=== PATIENT | male | born 1940 | race Hispanic/Latino ===

== ENCOUNTER → 2020-06-13 | Day surgery (SDC) | payer MEDICARE, OTHER ==
[2020-06-09 16:04] LABS: BASOPHILS % 0.4 % (0.0-1.0); EOSINOPHILS # (AUTO) 0.1 (0.0-0.4); EOSINOPHILS % 1.1 % (0.0-6.0); HEMATOCRIT 40.1 % (38.2-49.6); HEMOGLOBIN 12.8 g/dL (14.0-18.0); LYMPHOCYTES # (AUTO) 2.2 (1.0-3.2); LYMPHOCYTES % 39.6 % (18.0-39.1); MEAN CORPUSCULAR HGB CONC 31.9 g/dL (31-35); MEAN CORPUSCULAR VOLUME 97.1 fL (81-99); MONOCYTES # (AUTO) 0.4 (0.2-0.8); MONOCYTES % 7.6 % (4.4-11.3); NEUTROPHILS # (AUTO) 2.8 (2.1-6.9); NEUTROPHILS % 50.9 % (38.7-80.0); PLATELET COUNT 160 x10e3/uL (140-360); RED BLOOD COUNT 4.13 x10e6/uL (4.3-5.7); RED CELL DISTRIBUTION WIDTH 13.4 % (11.7-14.4)
--- NOTE | 2020-06-09 16:36 | Diagnostic Imaging Report ---
EXAMINATION: CHEST 2 VIEWS INDICATION: Pre-operative COMPARISON: None FINDINGS: LINES/TUBES:None LUNGS:The lungs are well-inflated. No focal consolidation or pulmonary edema. 5 mm right apical pulmonary nodule PLEURA:No pleural effusion or pneumothorax. MEDIASTINUM:The cardiomediastinal silhouette appears normal in size and shape. Atherosclerotic calcifications of the thoracic aorta. BONES/SOFT TISSUES:No acute osseous injury. ABDOMEN:No free air under the diaphragm. IMPRESSION: No focal pneumonia or pulmonary edema. 5 mm right apical pulmonary nodule. If the patient is high risk, consider chest CT on a nonurgent basis for further evaluation. Signed by: Luna Saul MD on 06/09/2020 4:33 PM
--- NOTE | 2020-06-09 16:40 | Diagnostic Imaging Report ---
Exam: KUB - 2 views Indication: Preoperative Comparison: None Findings: Bilateral renal calculi measure up to 9 mm at the right upper pole, 4 mm at the left upper pole, and 5 mm at the left lower pole. A 7 mm calcific density overlying the approximate distribution of the right mid ureter may represent a ureteral calculus. Phleboliths in the left pelvis. Nonobstructive bowel gas pattern. No free air. No acute osseous injury. Impression: Bilateral renal calculi measure up to 9 mm on the right and 5 mm on the left. 7 mm calcific density in the right lower abdomen may represent a right ureteral calculus. Signed by: Luna Saul MD on 06/09/2020 4:36 PM
[~2020-06-13] MED LIST: AMLODIPINE BESYL5 MG PO; ASPIR 8181 MG PO; CEFTRIAXONE SOD 1 GM/NS 50 ML 50 ML IV ONE; DEXAMETHASONE SOD PHOS INJ 4 MG/ML VIAL ONE; ETOMIDATE 2 MG/ML 10 ML INJ IV ONE; IOPAMIDOL 300MG/ML 50ML INFUS..BTL IV ONE; LIDOCAINE HCL 2% JELLY 5 ML TUBE ONE; LIDOCAINE HCL 2% LOCAL INJ 5 ML SDV VIAL INJ ONE; MULTIVITAMINS1 EAC7 PO; ONDANSETRON HCL INJ 2MG/ML 2ML 2 MG/ML VIAL ONE; PROPOFOL IV EMULSION 10 MG/ML 20 ML VIAL ONE; RAMIPRIL5 MG PO; SEVOFLURANE INHAL SOLN 250 ML PEN BTL ONE
--- NOTE | 2020-06-13 07:10 | NUR ---
SPIRITUAL CARE - Pre-Surgery Assessment: Pt in bed. Pt's at bedside. Pt reported supportive attention from family and friends. Intervention: Supervisor Accounts Receivable provided pastoral presence, hospitality, and sympathetic listening. Acquainted pt with availability of locker room clerk while hospitalized. Outcome: Pt expressed appreciation for visit. No need for follow up indicated at this time. LILI Estradalain Spiritual Care Department O: [phone]
[2020-06-13 09:59] VITALS: BP 170/78
--- NOTE | 2020-06-13 11:05 | Operative Report ---
DATE OF PROCEDURE: 06/13/2020 SURGEON: Edgar Colmenares MD PREOPERATIVE DIAGNOSES: Bilateral renal calculi, right ureteral calculi, hematuria. POSTOPERATIVE DIAGNOSES: Bilateral renal calculi, right ureteral calculi, hematuria. PROCEDURES: 1. Cystourethroscopy with right ureteral catheterization and right retrograde pyelogram (separate procedure for microscopic hematuria). 2. Staged right-sided shock wave lithotripsy (entirely separate procedure, right ureteral calculi). 3. Supervision of fluoroscopy. 4. Interpretation of retrograde pyelography. ANESTHESIA: General. ESTIMATED BLOOD LOSS: Minimal. COMPLICATIONS: None. INDICATIONS: Mr. Jimenez is a 79-year-old male with a history of bilateral calculi. He and I had a long discussion about alternatives, risks, and benefits, including nothing, shock-wave lithotripsy, ureteroscopy, percutaneous surgery, or open surgery, and a stent. The patient voiced understanding of the options, alternatives, risks, and benefits. He declined stent placement. He voiced understanding options, elected to proceed with a minimally invasive approach and should this fail, a more aggressive approach. He elects to proceed. PROCEDURE IN DETAIL: After informed consent was obtained, the patient was taken to the operative suite, placed supine on the operative table, underwent general anesthesia by the Anesthesia Service, and was placed in dorsal lithotomy position, and sterilely prepped and draped for cystoscopy. A 21-Danish cystoscope was inserted per urethra. Normal urethra was noted. Panendoscopy of the bladder revealed no tumors, no stones. Right retrograde pyelogram was performed, revealed a very large approximately 8 x 7 mm mid ureteral calculus with proximal hydronephrosis, shock wave lithotripsy head was brought into view. A total of 3000 shocks on maximum power setting of 7 were delivered to the stone. The patient tolerated the procedure well and was transferred to the recovery room in excellent condition. Supervision of fluoroscopy and interpretation ventriculography: I was present for the entire procedure and supervised the use of fluoroscopy. There was no radiologist present. Attention was turned towards the right ureteral orifice, which was catheterized with 5-Danish open-ended catheter. Retrograde pyelogram was performed revealing a delicate distal ureter, a very large 7 x 8 mm mid ureteral calculus with proximal hydronephrosis. Edward Schatte, MD ES/MODL /[id number] cc: Brock Black MD
== END | disposition home or self-care (01) ==
LOC: OR 06:01
PROVIDERS: ATTEND Urology
DX: N13.2 Hydronephrosis with renal and ureteral calculous obstruction (principal); I12.9 Hypertensive chronic kidney disease with stage 1 through stage 4 chronic kidney disease, or unspecified chronic kidney disease; N28.1 Cyst of kidney, acquired; N40.1 Benign prostatic hyperplasia with lower urinary tract symptoms; N13.8 Other obstructive and reflux uropathy; N18.3 Chronic kidney disease, stage 3 (moderate); N52.9 Male erectile dysfunction, unspecified; F41.9 Anxiety disorder, unspecified; Z01.810 Encounter for preprocedural cardiovascular examination; Z01.812 Encounter for preprocedural laboratory examination; Z01.818 Encounter for other preprocedural examination; Z11.59 Encounter for screening for other viral diseases; Z79.82 Long term (current) use of aspirin
CPT/HCPCS: 36415; 50590; 71046; 74018; 85025; 93005; C1758; J0696; J1100; J2001 ×2; J2405; J2704; Q9967; U0002

== ENCOUNTER 2020-06-22 21:44 | Inpatient (IN) | payer MEDICARE, OTHER ==
[~2020-06-22] VITALS: Ht 167.6 cm; Wt 73.9 kg
[~2020-06-22 21:44] MED LIST changes: -CEFTRIAXONE SOD 1 GM/NS 50 ML 50 ML IV ONE; -DEXAMETHASONE SOD PHOS INJ 4 MG/ML VIAL ONE; -ETOMIDATE 2 MG/ML 10 ML INJ IV ONE; -IOPAMIDOL 300MG/ML 50ML INFUS..BTL IV ONE; -LIDOCAINE HCL 2% JELLY 5 ML TUBE ONE; -LIDOCAINE HCL 2% LOCAL INJ 5 ML SDV VIAL INJ ONE; -ONDANSETRON HCL INJ 2MG/ML 2ML 2 MG/ML VIAL ONE; -PROPOFOL IV EMULSION 10 MG/ML 20 ML VIAL ONE; -SEVOFLURANE INHAL SOLN 250 ML PEN BTL ONE
--- NOTE | 2020-06-22 21:59 | Emergency Department Note ---
History of Present Illnes History of Present Illness Chief Complaint: General Medicine Complaints History of Present Illness This is a 79 year old male arrives to the ED with complaints of a fever, states he had kidney stones and was under the care of Dr. Lua- patient states he had a lithotripsy done about a week ago but is otherwise a poor historian. Patient denies any dysuria, hematuria and denies having any pain. Onset (how long ago): day(s) Radiation: Reports non-radiation Severity: mild Context: Reports recent illness, Reports recent surgery Relieving factors: none Exacerbating factors: none Past Medical/Family History Physician Review I have reviewed the patient's past medical and family history. Any updates have been documented here. Past Medical History Recent Fever: Yes Clinical Suspicion of Infectio: Yes New/Unexplained Change in Ment: Yes Review of Systems Review of Systems Constitutional: Reports no symptoms, Reports as per HPI, Reports fever EENTM: Reports no symptoms Cardiovascular: Reports no symptoms Respiratory: Reports no symptoms Gastrointestinal: Reports no symptoms Genitourinary: Reports no symptoms Musculoskeletal: Reports no symptoms Integumentary: Reports no symptoms Neurological: Reports no symptoms Psychological: Reports no symptoms Endocrine: Reports no symptoms Hematological/Lymphatic: Reports no symptoms Physical Exam Related Data Allergies: Coded Allergies: No Known Allergies (Unverified , 06/09/20) Vital signs reviewed: Yes Physical Exam CONSTITUTIONAL Constitutional: Present well-developed, Present well-nourished HENT HENT: Present normocephalic, Present atraumatic, Present oropharynx clear/moist, Present nose normal HENT L/R: Present left ext ear normal, Present right ext ear normal EYES Eyes: Reports PERRL, Reports conjunctivae normal NECK Neck: Present ROM normal PULMONARY Pulmonary: Present effort normal, Present breath sounds normal CARDIOVASCULAR Cardiovascular: Present regular rhythm, Present heart sounds normal, Present capillary refill normal, Present normal rate GASTROINTESTINAL Abdominal: Present soft, Present nontender, Present bowel sounds normal GENITOURINARY Genitourinary: Present exam deferred SKIN Skin: Present warm, Present dry MUSCULOSKELETAL Musculoskeletal: Present ROM normal NEUROLOGICAL Neurological: Present alert, Present no gross motor or sensory deficits PSYCHOLOGICAL Psychological: Present mood/affect normal, Present judgement normal Results Laboratory Lab results reviewed: Yes Laboratory comments Laboratory Tests Test 06/23/20 01:35 06/22/20 21:50 White Blood Count 12.52 x10e3/uL (4.8-10.8) Red Blood Count 4.05 x10e6/uL (4.3-5.7) Hemoglobin 12.5 g/dL (14.0-18.0) Hematocrit 38.6 % (38.2-49.6) Mean Corpuscular Volume 95.3 fL (81-99) Mean Corpuscular Hemoglobin 30.9 pg (28-32) Mean Corpuscular Hemoglobin Concent 32.4 g/dL (31-35) Red Cell Distribution Width 13.5 % (11.7-14.4) Platelet Count 144 x10e3/uL (140-360) Neutrophils (%) (Auto) 73.3 % (38.7-80.0) Lymphocytes (%) (Auto) 15.3 % (18.0-39.1) Monocytes (%) (Auto) 10.5 % (4.4-11.3) Eosinophils (%) (Auto) 0.2 % (0.0-6.0) Basophils (%) (Auto) 0.2 % (0.0-1.0) Neutrophils # (Auto) 9.2 (2.1-6.9) Lymphocytes # (Auto) 1.9 (1.0-3.2) Monocytes # (Auto) 1.3 (0.2-0.8) Eosinophils # (Auto) 0.0 (0.0-0.4) Basophils # (Auto) 0.0 (0.0-0.1) Absolute Immature Granulocyte (auto 0.06 x10e3/uL (0-0.1) Urine Color Yellow (YELLOW) Urine Clarity Sl cloudy (CLEAR) Urine pH 7 (5 - 7) Urine Specific Cook 1.020 (1.010-1.025) Urine Protein 2+ (NEGATIVE) Urine Glucose (UA) Negative (NEGATIVE) Urine Ketones Negative (NEGATIVE) Urine Blood Moderate (NEGATIVE) Urine Nitrite Negative (NEGATIVE) Urine Bilirubin Negative (NEGATIVE) Urine Urobilinogen 1 mg/dL (0.2 - 1) Urine Leukocyte Esterase Small (NEGATIVE) Urine RBC 6-10 /HPF (0-5) Urine WBC 21-50 /HPF (0-5) Urine Epithelial Cells Few /LPF (NONE) Urine Bacteria Few /HPF (NONE) Sodium Level 136 mmol/L (136-145) Potassium Level 4.2 mmol/L (3.5-5.1) Chloride Level 105 mmol/L (98-107) Carbon Dioxide Level 21 mmol/L (22-29) Anion Gap 14.2 mmol/L (8-16) Blood Urea Nitrogen 21 mg/dL (7-26) Creatinine 1.68 mg/dL (0.72-1.25) Estimat Glomerular Filtration Rate 40 ML/MIN (60-) BUN/Creatinine Ratio 13 (6-25) Glucose Level 139 mg/dL (74-118) Lactic Acid Level 1.2 mmol/L (0.5-2.0) Calcium Level 9.0 mg/dL (8.4-10.2) Total Bilirubin 0.9 mg/dL (0.2-1.2) Aspartate Amino Transf (AST/SGOT) 23 IU/L (5-34) Alanine Aminotransferase (ALT/SGPT) 15 IU/L (0-55) Alkaline Phosphatase 53 IU/L (40-150) Creatine Kinase 693 IU/L (30-200) Creatine Kinase MB 0.60 ng/mL (0-5.0) Troponin I 0.006 ng/mL (0-0.300) Total Protein 7.6 g/dL (6.5-8.1) Albumin 3.5 g/dL (3.5-5.0) Globulin 4.1 g/dL (2.3-3.5) Albumin/Globulin Ratio 0.9 (0.8-2.0) Imaging Imaging results reviewed: Yes Impressions IMPRESSION: 1. 6.5 mm obstructing calculus in the proximal right ureter resulting in moderate to severe right hydroureteronephrosis. 2. Additional bilateral nephrolithiasis. 3. Colonic diverticulosis without diverticulitis. 4. Mildly enlarged prostate. Procedures 12 Lead ECG Interpretation ECG Interpretation : ECG: ECG 1 Prior ECG tracings: reviewed Rhythm: sinus rhythm Rate: normal QRS axis: left ST segments normal: Yes Clinical Impression: normal ECG Critical Care Time Total Critical Care Time (min): 65 Critcal care necessary due to: sepsis Assessment & Plan Medical Decision Making MDM 79-year-old male arrives to the ED with complaints of fever, patient is a poor historian. History reveals patient had stones with a recent lithotripsy. Patient can't hospital admission for comfort. UTI and sepsis. Patient source of infection noted to be his urine Patient met SIRS criteria on arrival Blood cultures, lactic acid and broad-spectrum antibiotics in the form of Rocephin given TIME OF SEPSIS 2300 Assessment & Plan Final Impression: (1) Hydroureter (2) Ureterolithiasis (3) UTI (urinary tract infection) (4) Severe sepsis Depart Disposition: ADMITTED Home Meds Reported Medications Multivitamin (MULTIVITAMINS) 1 Each Capsule, 1 CAP PO DAILY 06/09/20 Aspirin (ASPIR 81) 81 Mg Tablet.dr, 81 MG PO DAILY 06/09/20 Ramipril (RAMIPRIL) 5 Mg Capsule, 2.5 MG PO HS, #30 TAB 06/09/20 Amlodipine Besylate (AMLODIPINE BESYLATE) 5 Mg Tablet, 5 MG PO DAILY, #30 TAB 06/09/20 Medications in the ED Ceftriaxone Sodium 50 ml @ 100 mls/hr ONCE ONCE IV ; Start 06/22/20 at 22:00; Stop 06/22/20 at 22:29; Status ILENE MCKINLEY, Jun 22, 2020 21:58
[2020-06-22] MEDS ORDERED: CEFTRIAXONE SOD 1 GM/NS 50 ML 50 ML IV ONE (22:00)
[2020-06-22] MEDS ORDERED: ACETAMINOPHEN 325 MG TAB PO ONE (22:00)
[2020-06-22 22:05] LABS: BASOPHILS % 0.2 % (0.0-1.0); EOSINOPHILS % 0.2 % (0.0-6.0); HEMATOCRIT 38.6 % (38.2-49.6); HEMOGLOBIN 12.5 g/dL (14.0-18.0); LYMPHOCYTES # (AUTO) 1.9 (1.0-3.2); LYMPHOCYTES % 15.3 % (18.0-39.1); MEAN CORPUSCULAR HEMOGLOBIN 30.9 pg (28-32); MEAN CORPUSCULAR HGB CONC 32.4 g/dL (31-35); MEAN CORPUSCULAR VOLUME 95.3 fL (81-99); MONOCYTES # (AUTO) 1.3 (0.2-0.8); MONOCYTES % 10.5 % (4.4-11.3); NEUTROPHILS # (AUTO) 9.2 (2.1-6.9); NEUTROPHILS % 73.3 % (38.7-80.0); PLATELET COUNT 144 x10e3/uL (140-360); RED BLOOD COUNT 4.05 x10e6/uL (4.3-5.7); RED CELL DISTRIBUTION WIDTH 13.5 % (11.7-14.4)
[2020-06-22 22:21] LABS: CLARITY,URINE SL CLOUDY (CLEAR); COLOR,URINE YELLOW (YELLOW)
[2020-06-22 22:22] LABS: ALBUMIN 3.5 g/dL (3.5-5.0); ALBUMIN/GLOBULIN RATIO 0.9 (0.8-2.0); ANION GAP 14.2 mmol/L (8-16); BILIRUBIN,URINE NEGATIVE (NEGATIVE); CREATININE, SERUM 1.68 mg/dL (0.72-1.25); KETONES,URINE NEGATIVE (NEGATIVE); LEUKOCYTE ESTERASE ,URINE SMALL (NEGATIVE); NITRITE,URINE NEGATIVE (NEGATIVE); POTASSIUM 4.2 mmol/L (3.5-5.1); PROTEIN,URINE DIPSTICK 2+ (NEGATIVE); URINE UROBILINOGEN 1 mg/dL (0.2 - 1); WBC,URINE (MAN) 21-50 /HPF (0-5)
[2020-06-22 22:23] LABS: BACTERIA,URINE FEW /HPF; EPITHELIAL CELLS,URINE FEW /LPF
[2020-06-22 22:28] LABS: CREATINE KINASE MB 0.6 ng/mL (0-5.0)
[2020-06-22] MEDS ORDERED: SODIUM CHLORIDE 0.9% 1000ML 1,000 ML IV STA (22:35)
[2020-06-22] MEDS ORDERED: SODIUM CHLORIDE 0.9% 50ML 50 ML ONE (23:12)
[2020-06-22] MEDS ORDERED: IOPAMIDOL 370 MG/ML 200 ML INFUS..BTL INJ ONE (23:12)
--- NOTE | 2020-06-22 23:56 | Diagnostic Imaging Report ---
EXAM: CT Abdomen and Pelvis WITH contrast INDICATION: Abdominal pain. Fever. Kidney stones. COMPARISON: None. TECHNIQUE: Abdomen and pelvis were scanned utilizing a multidetector helical scanner from the lung base to the pubic symphysis after administration of IV contrast. Coronal and sagittal reformations were obtained. Routine protocol was performed. Scan was performed when during portal venous phase. IV CONTRAST: 100 cc [id number] ORAL CONTRAST: Water RADIATION DOSE: Total DLP: 340.01 mGy*cm Estimated effective dose: (DLP x 0.015 x size factor) mSv COMPLICATIONS: None FINDINGS: LINES and TUBES: None. LOWER THORAX: Unremarkable HEPATOBILIARY: No focal hepatic lesions. No biliary ductal dilation. GALLBLADDER: No radio-opaque stones or sludge. No wall thickening. SPLEEN: No splenomegaly. PANCREAS: No focal masses or ductal dilatation. ADRENALS: No adrenal nodules KIDNEYS/URETERS: There is a 6.5 mm obstructing calculus in the proximal right ureter resulting in moderate to severe right hydroureteronephrosis. In addition, there is a 7 mm calculus in the upper pole of the right kidney on image 18. Punctate calculus in the posterior interpolar region of the right kidney on image 21. 2 mm calculus in the posterior lower pole of the right kidney on image 32. There is mild right renal edema and perinephric stranding. There is a 5 mm nonobstructing calculus in the lower pole of the left kidney on image 25. 3 mm nonobstructing calculus in the interpolar region of the left kidney on image 16. Variously-sized low-attenuation lesions scattered throughout the left kidney consistent with simple cysts, the largest exophytic of the posterolateral interpolar region measuring 5.5 cm in length on sagittal image 95. Mild left caliectasis. GI TRACT: No abnormal distention, wall thickening, or evidence of bowel obstruction. There are diverticula within the colon without evidence of diverticulitis. Appendix is not clearly identified, however, there is no evidence of appendicitis. PELVIC ORGANS/BLADDER: The prostate is mildly enlarged measuring 5.5 x 4.8 cm in sagittal and transverse dimensions. LYMPH NODES: No lymphadenopathy. VESSELS: Unremarkable. PERITONEUM / RETROPERITONEUM: No free air or fluid. BONES: There are degenerative changes in the lumbar spine. SOFT TISSUES: Unremarkable. IMPRESSION: 1. 6.5 mm obstructing calculus in the proximal right ureter resulting in moderate to severe right hydroureteronephrosis. 2. Additional bilateral nephrolithiasis. 3. Colonic diverticulosis without diverticulitis. 4. Mildly enlarged prostate. Signed by: Dr. Elizabeth Gill M.D. on 06/22/2020 11:53 PM
[2020-06-23] VITALS (9 sets, daily range): BP systolic 112–154; BP diastolic 61–92
[2020-06-23] MEDS ORDERED: ONDANSETRON HCL INJ 2MG/ML 2ML 2 MG/ML VIAL IV PRN (01:00)
[2020-06-23] MEDS ORDERED: MORPHINE SULFATE 2 MG/ML SYR 1ML IV PRN (01:00)
[2020-06-23] MEDS ORDERED: CEFTRIAXONE SOD 1 GM/NS 50 ML 50 ML IV SCH (01:00)
--- NOTE | 2020-06-23 02:22 | NUR ---
PATIENT IS A NEW ADMIT THAT ARRIVED VIA STRETCHER. PATIENT IS AWAKE AND TALKING. PATIENT HAS BEEN TRANSFERRED INTO THE BED. BED IS IN LOWEST POSITION AND CALL LIGHT IS WITHIN REACH.
[2020-06-23] MEDS ORDERED: HYDRALAZINE HCL 20 MG/ML VIAL IV PRN (03:30)
[2020-06-23] MEDS: ACETAMINOPHEN 325 MG SUPP PR PRN ×2 (05:48→16:24)
[2020-06-23 06:41] LABS: BASOPHILS % 0.2 % (0.0-1.0); EOSINOPHILS % 0.1 % (0.0-6.0); HEMOGLOBIN 11.8 g/dL (14.0-18.0); LYMPHOCYTES # (AUTO) 1.1 (1.0-3.2); LYMPHOCYTES % 10.1 % (18.0-39.1); MEAN CORPUSCULAR HEMOGLOBIN 30.4 pg (28-32); MEAN CORPUSCULAR HGB CONC 31.9 g/dL (31-35); MEAN CORPUSCULAR VOLUME 95.4 fL (81-99); MONOCYTES # (AUTO) 1.1 (0.2-0.8); MONOCYTES % 9.9 % (4.4-11.3); NEUTROPHILS # (AUTO) 8.7 (2.1-6.9); NEUTROPHILS % 79.2 % (38.7-80.0); PLATELET COUNT 142 x10e3/uL (140-360); RED BLOOD COUNT 3.88 x10e6/uL (4.3-5.7); RED CELL DISTRIBUTION WIDTH 13.6 % (11.7-14.4)
--- NOTE | 2020-06-23 06:46 | NUR ---
patient is resting in bed.
--- NOTE | 2020-06-23 07:00 | NUR ---
RECEIVED BEDSIDE SHIFT REPORT FROM OFF GOING NIGHT NURSE. PATIENT IN STABLE CONDITION, NO S/S OF DISTRESS NOTED. TELEMETRY APPLIED. BED IN LOWEST POSITION, BED LOCKED. CALL LIGHT WITHIN REACH.
[2020-06-23 07:22] LABS: ALBUMIN 3.2 g/dL (3.5-5.0); ALBUMIN/GLOBULIN RATIO 0.9 (0.8-2.0); ANION GAP 13.1 mmol/L (8-16); CALCIUM 8.4 mg/dL (8.4-10.2); CREATININE, SERUM 1.45 mg/dL (0.72-1.25); POTASSIUM 4.1 mmol/L (3.5-5.1)
[2020-06-23 07:42] LABS: PHOSPHORUS 2.4 MG/DL (2.3-4.7)
[2020-06-23 08:02] LABS: THYROID STIMULATING HORMONE 0.274 uIU/mL (0.350-4.940)
[2020-06-23] MEDS: FAMOTIDINE 20 MG/2 ML VIAL IV SCH ×2 (08:42→17:53)
[2020-06-23] MEDS ORDERED: SODIUM CHLORIDE 0.9% 250ML 250 ML ONE (12:33)
[2020-06-23] MEDS: CEFTRIAXONE SOD 1 GM/NS 50 ML 50 ML IV SCH (12:36)
[2020-06-23] MEDS: DEXTROSE 5%/0.45% SOD CHL 1,000 ML IV SCH (14:00)
--- NOTE | 2020-06-23 18:44 | History and Physical ---
CONSULTING PHYSICIAN: Dr. Edgar Colmenares. PRIMARY CARE PHYSICIAN: Dr. Brock Black. CHIEF COMPLAINT: Fever. HISTORY OF PRESENT ILLNESS: The patient is a 79-year-old male, who presented to the emergency department with complaints of fever with a history of kidney stones. He had lithotripsy done about one week ago by Dr. Colmenares. He is a poor historian. PAST MEDICAL HISTORY: Bilateral renal calculi, right ureteral calculi, hematuria, hypertension, herpes simplex type 2 and/or shingles i.e., herpes zoster, as the patient takes acyclovir p.r.n. at home, and chronic venous stasis. PAST SURGICAL HISTORY: Cystourethroscopy with right ureteral catheterization and right retrograde pyelogram. Staged right-sided shockwave lithotripsy. This is all performed by Dr. Edgar Colmenares on 06/13/2020. FAMILY HISTORY: The patient states his father due to prostate cancer. His sister with cancer. His son, age 51, has diabetes mellitus. 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 He lives with his . He denies using any assistive device with walking. He tried smoking as a teenager, however, . He does not smoke now. He admits to drinking a few beers on the weekend. Denies any illicit drug use. ALLERGIES: NO KNOWN ALLERGIES. HOME MEDICATIONS: Multivitamin daily, aspirin 81 mg daily, amlodipine 5 mg daily, ramipril 2.5 mg daily, and acyclovir used p.r.n. for flare ups. REVIEW OF SYSTEMS: CONSTITUTIONAL: The patient states he has had weight loss from 183 pounds down to 162 pounds over the last 6 years. He did have fever on admission. Denies any current chills, but states he did have chills last night, 06/22. HEENT: No complaints of problems with eyes, nose, or throat. He is hard of hearing. RESPIRATORY: No complaints of shortness of breath, cough, or phlegm. GENITOURINARY: No dysuria, pain, or hematuria. The patient states he has a very small penis and a small urethra, thus difficult for him to urinate at times. INTEGUMENTARY: Denies any bruising or wounds or rash. CARDIOVASCULAR: No complaints of chest pain or palpitations. He takes ramipril and Norvasc at home for hypertension. GASTROINTESTINAL: Last bowel movement was this morning. No complaints of nausea, vomiting, diarrhea, or constipation. MUSCULOSKELETAL: He has low back pain when lifting things. Denies joint pain. No neurologic, endocrine, allergic, immunological, hematologic, or lymphatic complaints. PHYSICAL EXAMINATION: VITAL SIGNS: Temperature 99.4, currently 98.8, heart rate 115 this morning, currently 102, blood pressure 112/89, respirations 18, and oxygen saturation 96%. Height 5 feet 6 inches, weight 163 pounds, BMI 26.3. GENERAL: The patient lying supine in bed. No acute distress. LUNGS: Clear to auscultation. Respiratory pattern even and unlabored. No supplemental oxygen. HEENT: EOMI. NECK: Supple. No JVD. CARDIOVASCULAR: Regular rate and rhythm. No murmur. ABDOMEN: Bowel sounds positive. Soft and nontender. EXTREMITIES: With no pitting edema. No clubbing, cyanosis, or marked swelling. He has obvious varicose veins. NEUROLOGICAL: GCS 15. Nonfocal. LABORATORY DATA: WBCs 10.94, which is down from 12.52 when he came in yesterday, hemoglobin 11.8, hematocrit 37, and platelets 142. Sodium 139, potassium 4.1, chloride 107, CO2 23, anion gap 13.1, BUN 18, creatinine 1.45, estimated GFR 47, glucose 105, calcium 8.4, phosphorus 2.4, and magnesium 2.0. Total bilirubin 0.8, AST 21, ALT 15, and alkaline phosphatase 55. Total protein 6.9 and albumin 3.2. Triglycerides 52, cholesterol 133, LDL 78, and HDL 45. TSH 0.274. Urinalysis done 06/22, slightly cloudy, specific gravity 1.020, urine protein 2+, small amount of leukocyte esterase, negative for nitrite, rbc's 6 to 10, wbc's, 21 to 50. Coronavirus collected 06/23, remains pending. IMAGING: Yesterday, a CT of the abdomen and pelvis with contrast was done showing a 6.5 mm obstructing calculus in the proximal right ureter resulting in [id number] right hydroureteronephrosis. Additional bilateral nephrolithiasis. Colonic diverticulosis without diverticulitis. Mildly enlarged prostate. A 12-lead EKG done 06/22, showed sinus tachycardia with a heart rate of 103. ASSESSMENT AND PLAN: 1. Hydroureter due to ureterolithiasis. Stone is 6.5 mm. We will start the patient on IV fluids D5 in half-normal saline at 100 mL an hour. Urology following. Pain control. Rocephin antibiotic. 2. Acute urinary tract infection, POA. Empiric Rocephin for now. Await final urine culture and sensitivity results. 3. Severe sepsis due to urinary tract infection, POA. WBCs 10.9 (12.52). Continue Rocephin. 4. Acute kidney injury. Creatinine 1.45 (1.68). Estimated GFR 47 (40). Ramipril held. Monitor renal labs. 5. Controlled hypertension. Blood pressure 112/89. Home dose of Norvasc resumed. P.r.n. IV hydralazine. Monitor blood pressure. 6. Chronic venous insufficiency. Follow up with Cardiology. Follow up with PCP outpatient for referral for possible radiofrequency ablation after seen by Cardiology. 7. Benign prostatic hypertrophy. History and physical time spent 60 minutes. Billing code [id number]. Dictated by Marcus Vargas NP MD YIN CoteP/MODL /[id number]
--- NOTE | 2020-06-23 19:10 | NUR ---
COMPLETED BEDSIDE SHIFT REPORT AND ROUNDING WITH ONCOMING NIGHT NURSE. PATIENT IN STABLE CONDITION, NO S/S OF DISTRESS NOTED. TELEMETRY APPLIED. IV FLUIDS INFUSING @ 100 ML/HR, SITE ASYMPTOMATIC AND PATENT , TRANSPARENT DRESSING APPLIED C/D/I. BED IN LOWEST POSITION, BED LOCKED, SIDE RAILS X 2, NON-SKID SOCKS . CALL LIGHT WITHIN REACH.
[2020-06-23 20:53] LABS: BILIRUBIN,URINE NEGATIVE (NEGATIVE); CLARITY,URINE SL CLOUDY (CLEAR); COLOR,URINE YELLOW (YELLOW); KETONES,URINE NEGATIVE (NEGATIVE); LEUKOCYTE ESTERASE ,URINE NEGATIVE (NEGATIVE); NITRITE,URINE NEGATIVE (NEGATIVE); PROTEIN,URINE DIPSTICK 2+ (NEGATIVE); URINE UROBILINOGEN 0.2 mg/dL (0.2 - 1)
[2020-06-23 21:05] LABS: BACTERIA,URINE MODERATE /HPF; WBC,URINE (MAN) 0-5 /HPF (0-5)
--- NOTE | 2020-06-23 21:05 | NUR ---
URINE SENT TO THE LAB.
[2020-06-24] VITALS (9 sets, daily range): BP systolic 118–157; BP diastolic 51–70
[2020-06-24] MEDS: ACETAMINOPHEN 325 MG SUPP PR PRN (00:40)
[2020-06-24] MEDS: DEXTROSE 5%/0.45% SOD CHL 1,000 ML IV SCH ×3 (02:33→17:31)
[2020-06-24 06:08] LABS: BASOPHILS % 0.2 % (0.0-1.0); EOSINOPHILS % 0.1 % (0.0-6.0); HEMATOCRIT 37.1 % (38.2-49.6); HEMOGLOBIN 11.8 g/dL (14.0-18.0); LYMPHOCYTES # (AUTO) 1.6 (1.0-3.2); LYMPHOCYTES % 18.2 % (18.0-39.1); MEAN CORPUSCULAR HEMOGLOBIN 30.8 pg (28-32); MEAN CORPUSCULAR HGB CONC 31.8 g/dL (31-35); MEAN CORPUSCULAR VOLUME 96.9 fL (81-99); MONOCYTES # (AUTO) 1.1 (0.2-0.8); MONOCYTES % 12.4 % (4.4-11.3); NEUTROPHILS % 68.5 % (38.7-80.0); PLATELET COUNT 124 x10e3/uL (140-360); RED BLOOD COUNT 3.83 x10e6/uL (4.3-5.7); RED CELL DISTRIBUTION WIDTH 13.9 % (11.7-14.4)
[2020-06-24 06:30] LABS: ALBUMIN/GLOBULIN RATIO 0.8 (0.8-2.0); ANION GAP 11.8 mmol/L (8-16); CALCIUM 8.5 mg/dL (8.4-10.2); CREATININE, SERUM 1.59 mg/dL (0.72-1.25); POTASSIUM 3.8 mmol/L (3.5-5.1)
--- NOTE | 2020-06-24 07:00 | NUR ---
BEDSIDE SHIFT REPORT RECEIVED FROM THE HAIR PREPARER RN. EDUCATED PT ABOUT FALL PRECAUTIONS. PT VERBALIZED UNDERSTANDING. CALL LIGHT WITH IN EASY REACH. INSTRUCTED PT TO USE CALL LIGHT FOR ALL THE NEEDS. BED IS LOW AND LOCKED. SIDE RAILS X2. PT DENIES NEEDS AT THIS TIME.
--- NOTE | 2020-06-24 07:17 | NUR ---
Bed side shift report given to oncoming Rn.stable condition.
[2020-06-24] MEDS: AMLODIPINE BESYLATE 5 MG TAB PO SCH (08:29)
[2020-06-24] MEDS: FAMOTIDINE 20 MG/2 ML VIAL IV SCH ×2 (08:29→16:16)
[2020-06-24] MEDS: ASPIRIN 81 MG CHEW TAB PO SCH (08:29)
[2020-06-24] MEDS: MULTIVITAMINS/MINERALS TAB PO SCH (08:29)
--- NOTE | 2020-06-24 09:30 | NUR ---
RECEIVED FAX FROM [facility] @ OFF: [phone] / FAX: [phone] REQUESTING DC ORDERS / SUMMARY TO RESUME HOME HEALTH SERVICES ONCE PT IS DISCHARGED FROM THE HOSPITAL. Addendum: 06/24/20 at 0932 by Marylin South CM THE ABOVE IS ENTERED IN ERROR.
--- NOTE | 2020-06-24 10:21 | Diagnostic Imaging Report ---
Exam: KUB - 2 views Indication: Renal calculus Comparison: CT abdomen and pelvis of 06/22/2020 Findings: 8 mm right upper pole calculus and 5 mm left lower pole calculus corresponds with findings on the CT of 06/22/2020. 7 mm calcific density on the right at the level of L4 corresponds with the right ureteral calculus seen on CT. No additional radiographically apparent urinary calculi. Nonobstructive bowel gas pattern. No free air. No acute osseous injury. Mild degenerative changes of the visualized spine and hip joints. Phleboliths in the pelvis. Impression: Right and left renal calculi and right ureteral calculus as above correspond to findings on recent CT. Signed by: Luna Saul MD on 06/24/2020 10:17 AM
[2020-06-24] MEDS ORDERED: VANCOMYCIN 1GM/NS 250 ML 250 ML IV SCH (11:15)
[2020-06-24] MEDS: CEFTRIAXONE SOD 1 GM/NS 50 ML 50 ML IV SCH (13:25)
--- NOTE | 2020-06-24 17:10 | NUR ---
The patient is a 79-year-old male, who presented to the emergency department with complaints of fever with a history of kidney stones. He had lithotripsy done about one week ago by Dr. Colmenares. He is a poor historian. PAST MEDICAL HISTORY: Bilateral renal calculi, right ureteral calculi, hematuria, hypertension, herpes simplex type 2 and/or shingles i.e., herpes zoster, as the patient takes acyclovir p.r.n. at home, and chronic venous stasis. PAST SURGICAL HISTORY: Cystourethroscopy with right ureteral catheterization and right retrograde pyelogram. Staged right-sided shockwave lithotripsy. This is all performed by Dr. Edgar Colmenares on 06/13/2020. FAMILY HISTORY: The patient states his father due to prostate cancer. His sister with cancer. His son, age 51, has diabetes mellitus. 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 He lives with his . He denies using any assistive device with walking. He tried smoking as a teenager, however, . He does not smoke now. He admits to drinking a few beers on the weekend. Denies any illicit drug use. ALLERGIES: NO KNOWN ALLERGIES. HOME MEDICATIONS: Multivitamin daily, aspirin 81 mg daily, amlodipine 5 mg daily, ramipril 2.5 mg daily, and acyclovir used p.r.n. for flare ups. [id number]
--- NOTE | 2020-06-24 19:00 | NUR ---
BEDSIDE SHIFT REPORT GIVEN TO THE FRUIT OR NUT FARMWORKER RN. PT DENIED FURTHER NEEDS.
--- NOTE | 2020-06-24 19:02 | NUR ---
Received the patient in report.no pain voiced.stable condition.
--- NOTE | 2020-06-24 21:10 | NUR ---
Assessment done.no resp.distress.no pain voiced.aaox3.iv fluid running.tele #[phone] showing sr.phone and call light within reach.instructed to call for assistance as needed.
--- NOTE | 2020-06-24 22:03 | NUR ---
Report given to Kelley.
--- NOTE | 2020-06-24 22:20 | NUR ---
Afebrile.Transferred the patient to room #106 in a stable condition along with belongings via wheel chair.
--- NOTE | 2020-06-24 22:24 | NUR ---
RECEIVED AMAZING REPORT FROM PREVIOUS NURSE. PATIENT CAME TO THE UNIT VIA WHEELCHAIR FROM ROOM 287 ON MED SURG 3. PATIENT IN NO PAIN OR DISTRESS. PATIENT IS A&OX3 AND AMBULATES. BELONGINGS ARE WITH THE PATIENT.
[2020-06-24] MEDS ORDERED: ACETAMINOPHEN 325 MG TAB PO PRN (23:00)
[2020-06-24] MEDS: ENOXAPARIN SOD INJ 40 MG/0.4 ML SYR SC SCH (23:14)
[2020-06-25] VITALS (7 sets, daily range): BP systolic 117–161; BP diastolic 61–81
--- NOTE | 2020-06-25 00:47 | Consultation ---
DATE OF CONSULTATION: HISTORY OF PRESENT ILLNESS: Mr. Jimenez is a 79-year-old [place] male comes in with fever for couple of days. He does have history of kidney stones, bilateral kidney calculi, had a cystoscopy. The patient comes in with fever, chills, and abdominal pain, mainly on the right side. The patient is currently being admitted. The patient does have history of renal stone, UTI before, Herpes Zoster before. His blood cultures are pending. His urine cultures showed Staph aureus and Enterococcus. LABORATORY STUDIES: White count on admission was 12.5 and hemoglobin 12. His COVID-19 was negative. Sodium 1.45. The patient was currently on Rocephin and vancomycin. PHYSICAL EXAMINATION: GENERAL: He is currently alert and oriented. VITAL SIGNS: Stable currently afebrile. . HEENT: Not icteric. NECK: Supple. CHEST: Clear bilateral. HEART: S1 and S2. LUNGS: Soft. IMAGING: CAT scan was noted. IMPRESSION: Urinary tract infection, obstructing calculi, chronic kidney disease, bilateral nephrolithiasis, urinary tract infection with Staphylococcus aureus and Enterococcus. Agree with vancomycin, adjusted for kidney function. We will give Rocephin Enterococcus. Vanc 1 g q.24, Rocephin 1 g q.24. Urology evaluation. We will follow. MD MARY Johnson/CARMITA /[id number]
--- NOTE | 2020-06-25 01:17 | Progress Note ---
DATE: 06/24/2020 Medicine Progress Note SUBJECTIVE: The patient was transferred to my service for underlying insurance reasons. The patient was admitted for underlying hydroureter secondary to nephrolithiasis with a 6.5 mm stone seen on the right ureter. Urology was consulted. The patient was scheduled for a possible cystoscopy soon. PHYSICAL EXAMINATION: VITAL SIGNS: Temperature is 98.7. His T-max is 100.3, pulse 93, respiratory rate is 20, and blood pressure was 100% on room air. GENERAL: In no acute distress. Alert and oriented x3. Cooperative on examination. HEENT: Head is normocephalic and atraumatic. Eyes; pupils are reactive to light bilaterally. Extraocular movements intact bilaterally. Throat, no evidence of any erythema or exudates in the posterior pharynx. Has poor dentition. NECK: Supple. Good range of motion throughout. PULMONARY: Clear to auscultation bilaterally. No wheezing, rales, or rhonchi. No crackles appreciated. CARDIOVASCULAR: Positive S1 and S2. No murmurs, rubs, or gallops. GI: Abdomen is soft, nondistended, and nontender to palpation. Bowel sounds present. MUSCULOSKELETAL: Strength 5/5 throughout. No evidence of any muscle deficits on examination. No weakness appreciated. NEUROLOGIC: Cranial nerves 2 through 12 grossly intact. No evidence of any neurological deficits on exam. SKIN: Intact. Warm to touch. Good cap refill. PSYCHIATRIC: Normal affect and mood. EXTREMITIES: No edema. Good range of motion throughout. LABORATORY FINDINGS: Show white count 8.7, hemoglobin was 11.8, hematocrit 37.1, and platelets of 124. Chemistry; sodium 136, potassium 3.8, chloride 106, bicarb 22, anion gap of 11, BUN 19, creatinine 1.59, and glucose is 116. A1c was 5.3. LFTs within normal range. Albumin was 3, LDL was 78. Urinalysis concerning for underlying UTI. Coronavirus not detected. MICROBIOLOGY: Blood cultures no growth. Urine culture shows Enterococcus and Staphylococcus aureus. IMAGING STUDIES: CT abdomen and pelvis showed 6.5 mm obstructing calculus in the proximal right ureter resulting in gghgcnwa-nn-jlsiug right hydroureteronephrosis. Additional bilateral nephrolithiasis. Chronic diverticulosis without diverticulitis. Mildly enlarged prostate. Abdominal x-ray shows a right left renal calculi with right ureteral calculus as above described on CT findings. IMPRESSION: 1. Fkwgptzx-dd-lzeunp heart right hydroureteronephrosis. 2. Sepsis with leukocytosis with fever secondary to urinary tract infection. 3. Acute kidney injury, on chronic kidney disease, stage 3. 4. Hypotension. 5. BPH. PLAN: At this time. Urology and ID have been consulted. The patient will undergo cystoscopy soon once the coronavirus is negative, which it is now negative. We are going to monitor blood and urine cultures. Continue with broad-spectrum IV antibiotic therapy. Blood cultures no growth to date. Repeat labs in the morning. Put on Lovenox for DVT prophylaxis. Heart healthy diet. PT/OT evaluation. MD MOUSTAPHA Santos/CARMITA /[id number]
[2020-06-25] MEDS: DEXTROSE 5%/0.45% SOD CHL 1,000 ML IV SCH ×2 (04:45→15:48)
[2020-06-25 05:35] LABS: BASOPHILS % 0.3 % (0.0-1.0); EOSINOPHILS # (AUTO) 0.1 (0.0-0.4); EOSINOPHILS % 0.6 % (0.0-6.0); HEMATOCRIT 35.3 % (38.2-49.6); HEMOGLOBIN 11.7 g/dL (14.0-18.0); LYMPHOCYTES # (AUTO) 1.9 (1.0-3.2); LYMPHOCYTES % 24.1 % (18.0-39.1); MEAN CORPUSCULAR HEMOGLOBIN 32.2 pg (28-32); MEAN CORPUSCULAR HGB CONC 33.1 g/dL (31-35); MEAN CORPUSCULAR VOLUME 97.2 fL (81-99); MONOCYTES # (AUTO) 1.1 (0.2-0.8); MONOCYTES % 13.9 % (4.4-11.3); NEUTROPHILS # (AUTO) 4.8 (2.1-6.9); NEUTROPHILS % 60.7 % (38.7-80.0); PLATELET COUNT 135 x10e3/uL (140-360); RED BLOOD COUNT 3.63 x10e6/uL (4.3-5.7); RED CELL DISTRIBUTION WIDTH 13.9 % (11.7-14.4)
[2020-06-25 05:54] LABS: ANION GAP 10.5 mmol/L (8-16); CALCIUM 8.6 mg/dL (8.4-10.2); CREATININE, SERUM 1.65 mg/dL (0.72-1.25); POTASSIUM 3.5 mmol/L (3.5-5.1)
[2020-06-25] MEDS ORDERED: IOPAMIDOL 300MG/ML 50ML INFUS..BTL IV ONE (06:11)
--- NOTE | 2020-06-25 06:30 | NUR ---
PATIENT LEFT FOR SURGERY VIA STRETCHER. PATIENT IN NO PAIN OR DISTRESS. PATIENT USED THE BATHROOM BEFORE LEAVING. PATIENT IS A&OX3 AND AMBULATES. Addendum: 06/25/20 at 0636 by Brionna Corona RN HOURLY ROUNDING PERFORMED
--- NOTE | 2020-06-25 07:00 | NUR ---
PATIENT IN OR AT THIS TIME. RECEIVED REPORT FROM [facility]DERS.
--- NOTE | 2020-06-25 07:14 | NUR ---
GAVE BEDSIDE SHIFT REPORT TO ONCOMING NURSE. HOURLY ROUNDING PERFORMED. PATIENT IN SURGERY
[2020-06-25 08:17] LABS: INR 1.05; PROTHROMBIN TIME 14.2 seconds (11.9-14.5)
[2020-06-25] MEDS ORDERED: FENTANYL CITRATE/PF 100MCG/2 ML INJ ONE (08:31)
[2020-06-25] MEDS ORDERED: MIDAZOLAM HCL 2 MG/2 ML VIAL ONE (08:31)
[2020-06-25] MEDS ORDERED: LIDOCAINE HCL 1% LOCAL INJ 20 ML VIAL ONE (08:40)
[2020-06-25] MEDS ORDERED: IOPAMIDOL 300 MG/ML 15ML VIAL IT ONE (08:40)
[2020-06-25] MEDS ORDERED: SODIUM CHLORIDE 0.9% 250ML 250 ML ONE (08:40)
[2020-06-25] MEDS ORDERED: IOPAMIDOL 370 MG/ML 200 ML INFUS..BTL INJ ONE (08:46)
[2020-06-25] MEDS ORDERED: IOPAMIDOL 300MG/ML 100 ML INFUS..BTL IV ONE (08:47)
--- NOTE | 2020-06-25 09:44 | Diagnostic Imaging Report ---
Right percutaneous nephrostomy catheter placement History: Right-sided hydronephrosis secondary to obstructive ureteral stone. Modality: Ultrasound and fluoroscopy Sedation: Versed 1 mg and fentanyl 50 mcg was given intravenously for conscious sedation. Vital signs were monitored throughout the procedure by a nurse, and remained stable. Physician intra-service time was 30 minutes. Fluoroscopy Time: 1.9 min. Reference Air Kerma (Ka, r): 13.1 mGy. Approach: Right flank, percutaneous Estimated blood loss: < 5 cc. oil well perforator operator: Martin Bailon MD. Activity Therapy Specialist: None. Technique/findings: Informed written consent was obtained. Discussion of risks, benefits, and alternatives were made with the patient. The patient expressed understanding and agreed to proceed. A universal timeout was performed prior to starting the procedure. All elements maximal sterile barrier technique was utilized for this procedure, including utilization of sterile scrub solution for skin prep, a large sterile sheet to cover the areas of the patient that were not prepped, and hand hygiene, mask, head covering, and sterile gown for performing radiologist and scrub technologist. Initial ultrasound images demonstrate severe right-sided hydronephrosis. 2% lidocaine was used for local anesthesia. Using ultrasound guidance, following acquisition of prior images, a 21-gauge Chiba needle was advanced into a right lower calyx. Return of urine and contrast injection confirmed intraluminal placement within the calyx. A 0.018 wire was advanced through the needle and coiled within the right renal pelvis. The needle was exchanged for a 6 Swazi AccuStick sheath. Gentle nephrostogram was performed confirming obstructing mid right ureteral stone. Initial attempt at traversing the stone with a wire was unsuccessful. A prolonged attempt was not made at traversing the stone given concern for acute infection. Subsequently, a 0.035 Amplatz wire was coiled within the right renal pelvis. The tract was dilated and an 8.5 Swazi nephrostomy catheter was advanced over wire with pigtail formed within the right renal pelvis. Contrast injection confirms appropriate positioning. The catheter spaces 0 silk suture. A sterile dressing was applied. The patient told the procedure without immediate complication. Impression: Successful ultrasound and fluoroscopic guided right percutaneous the prostate catheter placement. Can consider attempt at conversion to nephroureterostomy after acute issues resolve if clinically desired. Signed by: Dr. Martin Bailon MD on 06/25/2020 9:41 AM
--- NOTE | 2020-06-25 09:46 | NUR ---
RECEIVED PATIENT FROM RADIOLOGY. PATIENT HAD RIGHT NEPHROSTOMY TUBE PLACED. ORANGE DRAINAGE PRESENT IN BAG. PATIENT DENIES PAIN AT THIS TIME. CALL LIGHT IN REACH WILL CONTINUE TO MONITOR.
[2020-06-25] MEDS: VANCOMYCIN 1GM/NS 250 ML 250 ML IV SCH (11:06)
[2020-06-25] MEDS: FAMOTIDINE 20 MG/2 ML VIAL IV SCH ×2 (11:06→17:07)
[2020-06-25] MEDS: ASPIRIN 81 MG CHEW TAB PO SCH (11:06)
[2020-06-25] MEDS: MULTIVITAMINS/MINERALS TAB PO SCH (11:06)
[2020-06-25] MEDS: AMLODIPINE BESYLATE 5 MG TAB PO SCH (11:06)
[2020-06-25] MEDS: CEFTRIAXONE SOD 1 GM/NS 50 ML 50 ML IV SCH (13:37)
[2020-06-25] MEDS ORDERED: ONDANSETRON HCL INJ 2MG/ML 2ML 2 MG/ML VIAL ONE (14:24)
[2020-06-25] MEDS ORDERED: SEVOFLURANE INHAL SOLN 250 ML PEN BTL ONE (14:24)
[2020-06-25] MEDS ORDERED: PROPOFOL IV EMULSION 10 MG/ML 20 ML VIAL ONE (14:24)
[2020-06-25] MEDS ORDERED: DEXAMETHASONE SOD PHOS INJ 4 MG/ML VIAL ONE (14:24)
[2020-06-25] MEDS ORDERED: LIDOCAINE HCL 2% LOCAL INJ 5 ML SDV VIAL INJ ONE (14:24)
--- NOTE | 2020-06-25 15:08 | Progress Note ---
DATE: 06/25/2020 Medicine Progress Note SUBJECTIVE: The patient underwent cystoscopy today, but his ureteral stent was unsuccessful in which a nephrostomy tube had to be inserted. The patient is seen postprocedurally. He is currently doing well with no complaints. PHYSICAL EXAMINATION: VITAL SIGNS: Temperature is 97.7, pulse 78, respiratory rate is 18, blood pressure 135/67, and pulse ox 100% on room air. GENERAL: Not in acute distress. Alert and oriented x3. Cooperative on examination. HEENT: Head; normocephalic, atraumatic. Eyes; pupils are equal, round, and reactive to light bilaterally. PULMONARY: Clear to auscultation bilaterally. No wheezing, no rales, no rhonchi, no crackles appreciated. CARDIOVASCULAR: Positive S1 and S2. No murmurs, rubs, or gallops appreciated. ABDOMEN: Soft, nondistended, and nontender to palpation. Bowel sounds present. MUSCULOSKELETAL: Strength is 5/5 throughout. No evidence of any muscle deficits on examination. No weakness appreciated. NEUROLOGIC: Cranial nerves 2 through 12 grossly intact. No evidence of any neurological deficits on exam. SKIN: Intact. Warm to touch. Good cap refill. PSYCHIATRIC: Normal affect and mood. EXTREMITIES: No edema. Good range of motion throughout. LABORATORY FINDINGS: Show white count 7.9, hemoglobin 11.7, hematocrit is 35, and platelets of 135. Chemistry; sodium 135, potassium 3.5, chloride 105, bicarb 23, anion gap of 10, BUN is 22, creatinine is 1.65, and glucose is 96. Hemoglobin A1c is 5.3. Calcium is 8.6, phosphorus is 2.4, and magnesium is 2. LFTs within normal range. Albumin was 3. TSH is 0.274. LDL was 78. Urinalysis noted. Urine culture shows Enterococcus and Staphylococcus aureus. Repeat urine culture collected. Blood culture showed no growth to date. IMPRESSION: 1. Esvrqdry-zz-aykqdj right hydroureteronephrosis. 2. Sepsis with leukocytosis with fever secondary to urinary tract infection. 3. Acute kidney injury on chronic kidney disease, stage 3. 4. Hypotension-resolved. 5. Benign prostatic hypertrophy. PLAN: The patient underwent cystoscopy today, was unsuccessful for ureteral stent, underwent nephrostomy to be performed by Interventional Radiology. The patient is doing much better now with no complaints. We will continue with broad-spectrum IV antibiotics. UA with culture has been repeated. ID is following. Blood cultures are no growth to date. Repeat labs in the morning. Lovenox for DVT prophylaxis. MD MOUSTAPHA Santos/MODL /[id number]
[2020-06-25] MEDS: ENOXAPARIN SOD INJ 40 MG/0.4 ML SYR SC SCH (17:07)
--- NOTE | 2020-06-25 18:22 | NUR ---
ABORATORY FINDINGS: Show white count 7.9, hemoglobin 11.7, hematocrit is 35, and platelets of 135. Chemistry; sodium 135, potassium 3.5, chloride 105, bicarb 23, anion gap of 10, BUN is 22, creatinine is 1.65, and glucose is 96. Hemoglobin A1c is 5.3. Calcium is 8.6, phosphorus is 2.4, and magnesium is 2. LFTs within normal range. Albumin was 3. TSH is 0.274. LDL was 78. Urinalysis noted. Urine culture shows Enterococcus and Staphylococcus aureus. Repeat urine culture collected. Blood culture showed no growth to date. [id number]
--- NOTE | 2020-06-25 19:29 | NUR ---
RECEIVED PATIENT IN BED AOX3 PATIENT HAD RIGHT NEPHROSTOMY TUBE WITH LIGHT ORANGE COLORED DRAINAGE . PATIENT DENIES PAIN AT THIS TIME. CALL LIGHT IN REACH WILL CONTINUE TO MONITOR.
[2020-06-26] VITALS (8 sets, daily range): BP systolic 121–141; BP diastolic 61–72
[2020-06-26] MEDS: DEXTROSE 5%/0.45% SOD CHL 1,000 ML IV SCH ×3 (00:45→21:39)
[2020-06-26 05:06] LABS: EOSINOPHILS % 0.2 % (0.0-6.0); HEMATOCRIT 31.4 % (38.2-49.6); HEMOGLOBIN 10.3 g/dL (14.0-18.0); LYMPHOCYTES # (AUTO) 0.8 (1.0-3.2); LYMPHOCYTES % 13.9 % (18.0-39.1); MEAN CORPUSCULAR HEMOGLOBIN 31.6 pg (28-32); MEAN CORPUSCULAR HGB CONC 32.8 g/dL (31-35); MEAN CORPUSCULAR VOLUME 96.3 fL (81-99); MONOCYTES # (AUTO) 0.7 (0.2-0.8); MONOCYTES % 11.5 % (4.4-11.3); NEUTROPHILS # (AUTO) 4.4 (2.1-6.9); NEUTROPHILS % 73.9 % (38.7-80.0); PLATELET COUNT 133 x10e3/uL (140-360); RED BLOOD COUNT 3.26 x10e6/uL (4.3-5.7); RED CELL DISTRIBUTION WIDTH 13.8 % (11.7-14.4)
[2020-06-26 05:28] LABS: ANION GAP 13.1 mmol/L (8-16); CALCIUM 8.2 mg/dL (8.4-10.2); CREATININE, SERUM 1.36 mg/dL (0.72-1.25); POTASSIUM 4.1 mmol/L (3.5-5.1)
--- NOTE | 2020-06-26 06:09 | NUR ---
PT RESTED DURING THE NIGHT ,DENIES PAIN .NEPHROSTOMY TUBE INTACT AND EMPTIED 100C.NO ACUTE DISTRESS NOTED .CALL LIGHT WITH IN REACH .CONTINUE TO MONITOR
--- NOTE | 2020-06-26 06:59 | NUR ---
EMPTIED 350CC/ FLUID FROM THE NEPHROSTOMY TUBE ,BEDSIDE REPORT GIVEN TO THE ONCOMING NURSE
--- NOTE | 2020-06-26 07:00 | NUR ---
RECEIVED PATIENT AWAKE RESTING IN BED NO S/S OF DISTRESS. BED LOW, WHEELS LOCKED, SIDE RAILS X2. CALL LIGHT IN REACH WILL CONTINUE TO MONITOR
[2020-06-26] MEDS: AMLODIPINE BESYLATE 5 MG TAB PO SCH (08:56)
[2020-06-26] MEDS: ASPIRIN 81 MG CHEW TAB PO SCH (08:56)
[2020-06-26] MEDS: FAMOTIDINE 20 MG/2 ML VIAL IV SCH ×2 (08:56→16:04)
[2020-06-26] MEDS: MULTIVITAMINS/MINERALS TAB PO SCH (08:56)
--- NOTE | 2020-06-26 10:29 | Progress Note ---
DATE: SUBJECTIVE: Mr. Jimenez underwent cystoscopy. Ureter stent was unsuccessful. Nephrostomy tube had to be used. Currently doing well. REVIEW OF SYSTEMS: Otherwise negative. PHYSICAL EXAMINATION: GENERAL: He is currently alert and oriented. VITAL SIGNS: Stable, afebrile. HEENT: He is not icteric. NECK: Supple. CHEST: Clear. HEART: S1 and S2. ABDOMEN: Soft. IMPRESSION: Sepsis, pyelonephritis, right hydronephrosis, chronic kidney disease, stage 3. His urine is showing Staph aureus. His white count down to 7.9. Currently on Rocephin and vancomycin. The Staph aureus is still unknown . We will follow. MD MARY Johnson/MODArmando /[id number]
[2020-06-26] MEDS: VANCOMYCIN 1GM/NS 250 ML 250 ML IV SCH (10:53)
[2020-06-26] MEDS: CEFTRIAXONE SOD 1 GM/NS 50 ML 50 ML IV SCH (12:34)
[2020-06-26] MEDS: ENOXAPARIN SOD INJ 40 MG/0.4 ML SYR SC SCH (16:04)
--- NOTE | 2020-06-26 19:30 | NUR ---
RECEIVED PT IN RESTROOM AOX3 NO ACUTE DISTRESS NOTED NEPHROSTOMY TUBE RT BACK DRAINING MARY COLORED URINE .CALL LIGHT WITH IN REACH ,CONTINUE TO MONITOR
[2020-06-26] MEDS ORDERED: ONDANSETRON HCL 4 MG ORAL DISINTEGRATING TAB PO PRN (21:15)
--- NOTE | 2020-06-26 23:32 | Progress Note ---
DATE: HISTORY OF PRESENT ILLNESS: Mr. Jimenez is doing about the same. No new complaint. Underwent cystoscopy. . PHYSICAL EXAMINATION: GENERAL: He is currently alert, oriented. VITAL SIGNS: Stable. Afebrile. HEENT: He is not icteric. NECK: Supple. CHEST: Clear. Heart: S1, S2. ABDOMEN: soft. IMPRESSION: Urinary tract infection with methicillin-resistant Staphylococcus aureus. The patient to be discharged home with Zyvox 600 mg p.o. b.i.d. to finish 14 days. He is stable from Infectious Disease . MD MARY Johnson/CARMITA /[id number]
--- NOTE | 2020-06-26 23:37 | Progress Note ---
DATE: 06/26/2020 Medicine Progress Note SUBJECTIVE: The patient was seen and evaluated approximately around 1:25 this afternoon. I rounded with the nurse. The patient is doing well. He has been cleared by Dr. Colmenares to go home with a nephrostomy tube. His microbiology, urine culture is still pending the preliminary repeat. PHYSICAL EXAMINATION: VITAL SIGNS: Temperature is 98.3, pulse 70, respiratory rate is 18, blood pressure 124/71, pulse ox 99% on room air. GENERAL: Not in acute distress. Alert and oriented x3. Cooperative on examination. HEENT: Head; normocephalic, atraumatic. Eyes; pupils are equal, round, and reactive to light bilaterally. Extraocular movements intact bilaterally. Throat; no evidence of erythema or exudates in the posterior pharynx. Has poor dentition. NECK: Supple. Good range of motion. PULMONARY: Clear to auscultation bilaterally. No wheezing, no rales, no rhonchi, no crackles appreciated. CARDIOVASCULAR: Positive S1 and S2. No murmurs, rubs, or gallops appreciated. ABDOMEN: Soft, nondistended, and nontender to palpation. Bowel sounds present. SKIN: Intact. Warm to touch. Good cap refill. PSYCHIATRIC: Normal affect and mood. EXTREMITIES: No edema. Good range of motion throughout. LABORATORY FINDINGS: Show white count 5.9, hemoglobin 10.3, hematocrit is 31, platelets of 133. Chemistry; sodium 138, potassium 4.1, chloride 109, bicarb 20, anion gap of 13, BUN is 29, creatinine 1.36, glucose is 136. MICROBIOLOGY: Urine cultures repeat preliminary was no growth. Original urine cultures, Enterococcus and Staphylococcus aureus. Blood cultures were no growth to-date. IMAGING STUDIES: Nothing new. IMPRESSION: 1. Qusjcgup-xv-fasqjc right hydroureteronephrosis, status post right-sided nephrostomy tube placed on 06/25/2020. 2. Sepsis with leukocytosis with fever secondary to urinary tract infection. 3. Acute kidney injury on chronic kidney disease, stage 3. 4. Hypotension. 5. Benign prostatic hypertrophy. PLAN: The patient has been evaluated by Urology and he has been cleared for discharge. He will continue with the nephrostomy tube upon discharge. Blood cultures were negative. We are waiting for the repeat urine culture. If they are negative, tomorrow we will discharge on oral antibiotics for two total weeks. I will discuss this with ID as well. Lovenox for DVT prophylaxis. I discussed this plan of care with the patient and the nursing staff. MD MOUSTAPHA Santos/CARMITA /[id number]
[2020-06-27] VITALS: BP 117/58
[2020-06-27 04:00] VITALS: BP 131/71
--- NOTE | 2020-06-27 06:37 | NUR ---
PT RESTING DENIES PAIN , NO ACUTE DISTRESS NOTED CALL LIGHT WITH IN REACH ,CONTINUE TO MONITOR
[2020-06-27] MEDS: DEXTROSE 5%/0.45% SOD CHL 1,000 ML IV SCH (06:43)
--- NOTE | 2020-06-27 07:00 | NUR ---
bedside shift report received pt in stable condition denies pain at this time, updated on poc voiced understanding, ivf infusing to r fa 20g no ss of infiltration noted, no other co vocied call light in reach will continue to monitor
--- NOTE | 2020-06-27 07:19 | NUR ---
BEDSIDE REPORT GIVEN TO THE ONCOMING NURSE
[2020-06-27 08:53] VITALS: BP 137/72
[2020-06-27] MEDS: FAMOTIDINE 20 MG/2 ML VIAL IV SCH (09:15)
[2020-06-27] MEDS: MULTIVITAMINS/MINERALS TAB PO SCH (09:15)
[2020-06-27] MEDS: ASPIRIN 81 MG CHEW TAB PO SCH (09:15)
[2020-06-27] MEDS: AMLODIPINE BESYLATE 5 MG TAB PO SCH (09:20)
[2020-06-27 09:23] VITALS: BP 137/72
[2020-06-27] MEDS: VANCOMYCIN 1GM/NS 250 ML 250 ML IV SCH (10:51)
[2020-06-27 12:27] VITALS: BP 135/62
[2020-06-27] MEDS: CEFTRIAXONE SOD 1 GM/NS 50 ML 50 ML IV SCH (12:30)
--- NOTE | 2020-06-27 16:49 | Discharge Summary ---
FINAL DISCHARGE DIAGNOSES: 1. Erphigso-ca-pgcetw right hydroureteronephrosis secondary to renal stone, status post right-sided nephrostomy tube placed on 06/25/2020. 2. Sepsis with leukocytosis with fever secondary to urinary tract infection. 3. Acute kidney injury on chronic kidney disease, stage 3. 4. Hypotension-resolved. 5. Benign prostatic hypertrophy. CONSULTANTS: Urology and Infectious Disease. PHYSICAL EXAMINATION: VITAL SIGNS: Temperature is 98.2, pulse 65, respiratory rate is 18, blood pressure 135/62, and pulse ox 100% on room air. LABORATORY FINDINGS: Show white count was 5.9, hemoglobin 10.3, hematocrit is 31, and platelets of 133. Coagulation; PT 14 and INR 1.05. Chemistry; sodium 138, potassium 4.1, chloride 109, bicarb 20, anion gap of 13, BUN is 29, creatinine is 1.36, glucose is 136, and calcium is 8.2. Hemoglobin A1c was 5.3. LFTs were normal. Albumin was 3. LDL was 78. Urinalysis consistent with UTI. Serology; coronavirus not detected. MICROBIOLOGY: Blood cultures no growth. Urine culture shows Enterococcus and Staphylococcus MRSA in the urine. In fact, the MRSA staph was less than 10,000 colonies very minimal, but the patient did have Enterococcus. In looking at the sensitivities, the patient was sensitive to Cipro, in which the patient was sent with 14 days of antibiotics. Repeat urine culture finally was found to be negative. IMAGING STUDIES: CT abdomen and pelvis showed a 6.5 mm obstructing calculus in the proximal right ureter resulting in qtlfzdwh-db-sjrpyt right hydroureteronephrosis. Additional bilateral nephrolithiasis noted. Colonic diverticulosis without diverticulitis. Mildly enlarged prostate. Abdominal x-ray shows right and left renal calculi with right ureteral calculus as above corresponds findings on the recent CT. HOSPITAL COURSE: This is a 79-year-old male, comes into the ED with complaints of flank pain on the right side, found to have a hvomchfd-ac-jjlvtq hydroureteronephrosis on CT imaging findings. Urology was consulted including ID. The patient maintained on broad-spectrum IV antibiotic therapy. The patient underwent cystoscopy on 06/25/2020 by Urology, but was unsuccessful for any stent or any stone extraction. Instead, the patient needed to have a nephrostomy tube inserted. The patient went to Interventional Radiology and a right-sided nephrostomy tube was inserted. The patient did much better with no complaints. His pain is better controlled. His blood cultures were negative. Initial urine culture shows Enterococcus faecalis and MRSA Staphylococcus, in which the patient was on IV antibiotic therapy. He was discharged on oral Cipro for 14 total days as per recommendations by the consultants. Repeat urine culture was found to be negative. The patient was doing well back to baseline with no complaints. The patient was cleared for discharge by all consultants. On the day of discharge, vital signs were stable, labs reviewed and stable. The patient is seen and evaluated and examined thoroughly on the day of discharge. No other complaints. The patient verbalized understanding and agrees to plan of care to follow up accordingly as an outpatient with the primary care physician in 1 week and Urology and ID in 2 weeks' time. The patient was educated about how to drain the nephrostomy tube drain by the nursing staff. MEDICATIONS: See medication reconciliation form. DISPOSITION: Home. CONDITION: Stable. DIET: Heart healthy. In the event of any worsening symptoms, the patient was advised to come back to the ED for further evaluation. Discharge summary took greater than 35 minutes. MD MOUSTAPHA Santos/CARMITA /[id number]
--- OUTSIDE RECORDS SUMMARY | 2020-06-27 18:41 | XMS REPORT | Continuity of Care Document ---
Author Author [facility] t Organization [facility] Address [address] [place] [address] [place] [id number] Phone Unavailable Care Team Providers Care Syrup Shed Supervisor Name Role Phone Malinda BRYSON Attphys Unavailable SAMSON JACK Attphymalinda Unavailable Malinda BRYSON Admphys Unavailable Problems This patient has no known problems. Allergies, Adverse Reactions, Alerts This patient has no known allergies or adverse reactions. Medications This patient has no known medications. Procedures This patient has no known procedures. Results Test Description Test Time Test Comments Results Result Comments Source IR CONSULT 2020-06-25 09:36:00 [facility] [address] [place] [id number] Patient Name: ABBI SAVAGE MR #: [id number] : 1940 Age/Sex: 79/M Req #: [id number] [facility] Physician: MARYJANE BRYSON MD Ordered by: SAMSON JACK MD Report #: [id number] Location: MED/SURG Room/Bed: [facility] Procedure: [id number] DX/IR CONSULT Exam Date: Exam Time: REPORT STATUS: Signed Right percutaneous nephrostomy catheter placement History: Right-sided hydronephrosis secondary to obstructive ureteral stone. Modality: Ultrasound and fluoroscopy Sedation: Versed 1 mg and fentanyl 50 mcg was given intravenously for conscious sedation. Vital signs were monitored throughout the procedure by a nurse, and remained stable. Physician intra- service time was 30 minutes. Fluoroscopy Time: 1.9 min. Reference Air Kerma (Ka, r): 13.1 mGy. Approach: Right flank, percutaneous Estimated blood loss: < 5 cc. continuous drier operator: Martin Bailon MD. Polymerization Engineer: None. Technique/findings: Informed written consent was obtained. Discussion of risks, benefits, and alternatives were made with the patient. The patient expressed understanding and agreed to proceed. A universal timeout was performed prior to starting the procedure. All elements maximal sterile barrier technique was utilized for this procedure, including utilization of sterile scrub solution for skin prep, a large sterile sheet to cover the areas of the patient that were not prepped, and hand hygiene, mask, head covering, and sterile gown for performing radiologist and scrub technologist. Initial ultrasound images demonstrate severe right-sided hydronephrosis. 2% lidocaine was used for local anesthesia. Using ultrasound guidance, following acquisition of prior images, a 21-gauge Chiba needle was advanced into a right lower calyx. Return of urine and contrast injection confirmed intraluminal placement within the calyx. A 0.018 wire was advanced through the needle and coiled within the right renal pelvis. The needle was exchanged for a 6 Taiwanese AccuStick sheath. Gentle nephrostogram was performed confirming obstructing mid right ureteral stone. Initial attempt at traversing the stone with a wire was unsuccessful. A prolonged attempt was not made at traversing the stone given concern for acute infection. Subsequently, a 0.035 Amplatz wire was coiled within the right renal pelvis. The tract was dilated and an 8.5 Taiwanese nephrostomy catheter was advanced over wire with pigtail formed within the right renal pelvis. Contrast injection confirms appropriate positioning. The catheter spaces 0 silk suture. A sterile dressing was applied. The patient told the procedure without immediate complication. Impression: Successful ultrasound and fluoroscopic guided right percutaneous the prostate catheter placement. Can consider attempt at conversion to nephrour eterostomy after acute issues resolve if clinically desired. Signed by: Dr. Martin Bailon MD on 06/25/2020 9:41 AM Dictated By: MARTIN BAILON MD 0 Transcribed By: MANSI on 06/25/20940 COPY TO: SAMSON JACK MD NEPHRO/URET W IMG/INJ-NEW ACC 2020-06-25 09:36:00 [place] [address] Patient Name: ABBI SAVAGE MR #: [id number] : 1940 Age/Sex: 79/M Req #: [id number] Adm Physician: MARYJANE BRYSON MD Ordered by: SAMSON JACK MD Report #: [id number] Location: MED/SURG Room/Bed: [facility] Procedure: [id number] IR/NEPHRO/URET W IMG/INJ-NEW ACC Exam Date: Exam Time: REPORT STATUS: Signed Right percutaneous nephrostomy catheter placement History: Right-sided hydronephrosis secondary to obstructive ureteral stone. Modality: Ultrasound and fluoroscopy Sedation: Versed 1 mg and fentanyl 50 mcg was given intravenously for conscious sedation. Vital signs were monitored throughout the procedure by a nurse, and remained stable. Physician intra-service time was 30 minutes. Fluoroscopy Time: 1.9 min. Reference Air Kerma (Ka, r): 13.1 mGy. Approach: Right flank, percutaneous Estimated blood loss: < 5 cc. continuous drier operator: Martin Bailon MD. Polymerization Engineer: None. Technique/findings: Informed written consent was obtained. Discussion of risks, benefits, and alternatives were made with the patient. The patient expressed understanding and agreed to proceed. A universal timeout was performed prior to starting the procedure. All elements maximal sterile barrier technique was utilized for this procedure, including utilization of sterile scrub solution for skin prep, a large sterile sheet to cover the areas of the patient that were not prepped, and hand hygiene, mask, head covering, and sterile gown for performing radiologist and scrub technologist. Initial ultrasound images demonstrate severe right-sided hydronephrosis. 2% lidocaine was used for local anesthesia. Using ultrasound guidance, following acquisition of prior images, a 21-gauge Chiba needle was advanced into a right lower calyx. Return of urine and contrast injection confirmed intraluminal placement within the calyx. A 0.018 wire was advanced through the needle and coiled within the right renal pelvis. The needle was exchanged for a 6 Taiwanese AccuStick sheath. Gentle nephrostogram was performed confirming obstructing mid right ureteral stone. Initial attempt at traversing the stone with a wire was unsuccessful. A prolonged attempt was not made at traversing the stone given concern for acute infection. Subsequently, a 0.035 Amplatz wire was coiled within the right renal pelvis. The tract was dilated and an 8.5 Taiwanese nephrostomy catheter was advanced over wire with pigtail formed within the right renal pelvis. Contrast injection confirms appropriate positioning. The catheter spaces 0 silk suture. A sterile dressing was applied. The patient told the procedure without immediate complication. Impression: Successful ultrasound and fluoroscopic guided right percutaneous the prostate catheter placement. Can consider attempt at conversion to nephroureterostomy after acute issues resolve if clinically desired. Signed by: Dr. Martin Bailon MD on 06/25/2020 9:41 AM Dictated By: MARTIN BAILON MD 0 Transcribed By: MANSI on 06/25/20940 COPY TO: SAMSON JACK MD US GUIDANCE FOR PROCEDURE 2020-06-25 09:36:00 [place] [address] Patient Name: ABBI SAVAGE MR #: [id number] : 1940 Age/Sex: 79/M Req #: [id number] Adm Physician: MARYJANE BRYSON MD Ordered by: SAMSON JACK MD Report #: [id number] Location: MED/SURG Room/Bed: [facility] Procedure: [id number] US/US GUIDANCE FOR PROCEDURE Exam Date: 06/25/20 Exam Time: 832 REPORT STATUS: Signed Right percutaneous nephrostomy catheter placement History: Right-sided hydronephrosis secondary to obstructive ureteral stone. Modality: Ultrasound and fluoroscopy Sedation: Versed 1 mg and fentanyl 50 mcg was given intravenously for conscious sedation. Vital signs were monitored throughout the procedure by a nurse, and remained stable. Physician intra-service time was 30 minutes. Fluoroscopy Time: 1.9 min. Reference Air Kerma (Ka, r): 13.1 mGy. Approach: Right flank, percutaneous Estimated blood loss: < 5 cc. continuous drier operator: Martin Bailon MD. Polymerization Engineer: None. Technique/findi ngs: Informed written consent was obtained. Discussion of risks, benefits, and alternatives were made with the patient. The patient expressed understanding and agreed to proceed. A universal timeout was performed prior to starting the procedure. All elements maximal sterile barrier technique was utilized for this procedure, including utilization of sterile scrub solution for skin prep, a large sterile sheet to cover the areas of the patient that were not prepped, and hand hygiene, mask, head covering, and sterile gown for performing radiologist and scrub technologist. Initial ultrasound images demonstrate severe right-sided hydronephrosis. 2% lidocaine was used for local anesthesia. Using ultrasound guidance, following acquisition of prior images, a 21-gauge Chiba needle was advanced into a right lower calyx. Return of urine and contrast injection confirmed intraluminal placement within the calyx. A 0.018 wire was advanced through the needle and coiled within the right renal pelvis. The needle was exchanged for a 6 Taiwanese AccuStick sheath. Gentle nephrostogram was performed confirming obstructing mid right ureteral stone. Initial attempt at traversing the stone with a wire was unsuccessful. A prolonged attempt was not made at traversing the stone given concern for acute infection. Subsequently, a 0.035 Amplatz wire was coiled within the right renal pelvis. The tract was dilated and an 8.5 Taiwanese nephrostomy catheter was advanced over wire with pigtail formed within the right renal pelvis. Contrast injection confirms appropriate positioning. The catheter spaces 0 silk suture. A sterile dressing was applied. The patient told the procedure without immediate complication. Impression: Successful ultrasound and fluoroscopic guided right percutaneous the prostate catheter placement. Can consider attempt at conversion to nephroureterostomy after acute issues resolve if clinically desired. Signed by: Dr. Martin Bailon MD on 06/25/2020 9:41 AM Dictated By: MARTIN BAILON MD 0 Transcribed By: MANSI on 06/25/20940 COPY TO: SAMSON JACK MD ABDOMEN-1VIEW (KUB) 2020-06-24 10:14:00 [place] [address] Patient Name: ABBI SAVAGE MR #: [id number] : 1940 Age/Sex: 79/M Req #: [id number] Adm Physician: GIOVANNA MCDONALD MD Ordered by: SAMSON JACK MD Report #: [id number] Location: MED/SURG3 Room/Bed: [facility] Procedure: [id number] DX/ABDOMEN-1VIEW (KUB) Exam Date: 06/24/20 Exam Time: 932 REPORT STATUS: Signed Exam: KUB - 2 views Indication: Renal calculus Comparison: CT abdomen and pelvis of 06/22/2020 Findings: 8 mm right upper pole calculus and 5 mm left lower pole calculus corresponds with findings on the CT of 06/22/2020. 7 mm calcific density on the right at the level of L4 corresponds with the right ureteral calculus seen on CT. No additional radiographically apparent urinary calculi. Nonobstructive bowel gas pattern. No free air. No acute osseous injury. Mild degenerative changes of the visualized spine and hip joints. Phleboliths in the pelvis. Impression: Right and left renal calculi and right ureteral calculus as above correspond to findings on recent CT. Signed by: Demarcus Rodriguez MD on 06/24/2020 10:17 AM Dictated By: DEMARCUS RODRIGUEZ MD 1017 Transcribed By: MANSI on 06/24/20 1017 COPY TO: SAMSON JACK MD CT ABDOMEN/PELVIS W 2020-06-22 23:42:00 [place] [address] Patient Name: ABBI SAVAGE MR #: [id number] : 1940 Age/Sex: 79/M Req #: [id number] Adm Physician: Ordered by: ILENE KILLIAN DO Report #: [id number] Location: ER Room/Bed: Procedure: [id number] CT/CT ABDOMEN/PELVIS W Exam Date: 06/22/20 Exam Time: 2315 REPORT STATUS: Signed EXAM: CT Abdomen and Pelvis WITH contrast INDICATION: Abdominal pain. Fever. Kidney stones. COMPARISON: None. TECHNIQUE: Abdomen and pelvis were scanned utilizing a multidetector helical scanner from the lung base to the pubic symphysis after administration of IV contrast. Coronal and sagittal reformations were obtained. Routine protocol was performed. Scan was performed when during portal venous phase. IV CONTRAST: 100 cc Isovue-370 ORAL CONTRAST: Water RADIATION DOSE: Total DLP: 340.01 mGy*cm Estimated effective dose: (DLP x 0.015 x size factor) mSv COMPLICATIONS: None FINDINGS: LINES and TUBES: None. LOWER THORAX: Unremarkable HEPATOBILIARY: No focal hepatic lesions. No biliary ductal dilation. GALLBLADDER: No radio-opaque stones or sludge. No wall thickening. SPLEEN: No splenomegaly. PANCREAS: No focal masses or ductal dilatation. ADRENALS: No adrenal nodules KIDNEYS/URETERS: There is a 6.5 mm obstructing calculus in the proximal right ureter resulting in moderate to severe right hydroureteronephrosis. In addition, there is a 7 mm calculus in the upper pole of the right kidney on image 18. Punctate calculus in the poste rior interpolar region of the right kidney on image 21. 2 mm calculus in the posterior lower pole of the right kidney on image 32. There is mild right renal edema and perinephric stranding. There is a 5 mm nonobstructing calculus in the lower pole of the left kidney on image 25. 3 mm nonobstructing calculus in the interpolar region of the left kidney on image 16. Variously- sized low-attenuation lesions scattered throughout the left kidney consistent with simple cysts, the largest exophytic of the posterolateral interpolar region measuring 5.5 cm in length on sagittal image 95. Mild left caliectasis. GI TRACT: No abnormal distention, wall thickening, or evidence of bowel obstruction. There are diverticula within the colon without evidence of diverticulitis. Appendix is not clearly identified, however, there is no evidence of appendicitis. PELVIC ORGANS/BLADDER: The prostate is mildly enlarged measuring 5.5 x 4.8 cm in sagittal and transverse dimensions. LYMPH NODES: No lymphadenopathy. VESSELS: Unremarkable. PERITONEUM / RETROPERITONEUM: No free air or fluid. BONES: There are degenerative changes in the lumbar spine. SOFT TISSUES: Unremarkable. IMPRESSION: 1. 6.5 mm obstructing calculus in the proximal right ureter resulting in moderate to severe right hydroureteronephrosis. 2. Additional bilateral nephrolithiasis. 3. Colonic diverticulosis without diverticulitis. 4. Mildly enlarged prostate. Signed by: Dr. Elizabeth Bahena M.D. on 06/22/2020 11:53 PM Dictated By: CARLOS BAHENA MD, MD [id number] Transcribed By: MANSI on 06/22/205 COPY TO: ILENE KILLIAN, DO CT CHEST WO 2020-06-19 10:11:00 [address] [place], [place] [address] Patient Name: ABBI SAVAGE MR #: [id number] : 1940 Age/Sex: 79/M Req #: [id number] Adm Physician: Ordered by: SAMSON JACK MD Report #: [id number] Location: CT Room/Bed: Procedure: [id number] CT/CT CHEST WO Exam Date: 06/19/20 Exam Time: 0950 REPORT STATUS: Signed EXAM: CT Chest WITHOUT intravenous contrast 06/19/2020 9:50 AM INDICATION: Pulmonary nodule COMPARISON: Chest radiograph 06/09/2020 TECHNIQUE: Chest was scanned utilizing a multidetector helical scanner from the lung apex through the level of the adrenal glands without a dministration of IV contrast. Coronal and sagittal reformations were obtained. Routine protocol was performed. IV CONTRAST: None RADIATION DOSE: Total DLP: 436 mGy*cm. Dose modulation, iterative reconstruction, and/or weight based adjustment of the mA/kV was utilized to reduce the radiation dose to as low as reasonably achievable. COMPLICATIONS: None FINDINGS: LINES/ TUBES: None. LUNGS AND AIRWAYS: The central airways are patent. No focal consolidation or pulmonary edema. Right apical nodular opacity seen on prior chest radiograph corresponds with a 6 mm calcified granuloma. No additional suspicious pulmonary nodules. PLEURA: The pleural spaces are clear. HEART AND MEDIASTINUM: The thyroid gland is normal. No mediastinal, hilar or axillary lymphadenopathy. The heart is normal in size.. There is no pericardial effusion. Scattered athetotic calcifications of the thoracic aorta and coronary arteries. UPPER ABDOMEN: 7 mm right upper pole renal calculus with moderate right hydronephrosis. Partially visualized 4.3 cm left upper pole exophytic simple renal cyst. 4 mm left upper pole renal calculus. 1cm left hepatic cyst. BONES: No acute osseous injury. No suspicious lytic or blastic lesions. SOFT TISSUES: Unremarkable. IMPRESSION: Nodular opacity seen on prior chest radiograph corresponds with a 6 mm right apical calcified granuloma. No suspicious pulmonary nodules. 7 mm right upper pole renal calculus and moderate right hydronephrosis. 4 mm left upper pole renal calculus. No left hydronephrosis. Partially visualized left upper pole 4.3 cm exophytic simple renal cyst. Signed by: Demarcus Rodriguez MD on 06/19/2020 10:18 AM Dictated By: DEMARCUS RODRIGUEZ MD 1018 Transcribed By: MANSI on 06/19/20 1018 COPY TO: SAMSON JACK MD ABDOMEN-1VIEW (KUB) 2020-06-09 16:34:00 [place] [address] Patient Name: ABBI SAVAGE MR #: [id number] : 1940 Age/Sex: 79/M Req #: [id number] Adm Physician: Ordered by: SAMSON JACK MD Report #: [id number] Location: OR Room/Bed: Procedure: [id number] DX/ABDOMEN-1VIEW (KUB) Exam Date: 06/09/20 Exam Time: 1618 REPORT STATUS: Signed Exam: KUB - 2 views Indication: Preoperative Comparison: None Findings: Bilateral renal calculi measure up to 9 mm at the right upper pole, 4 mm at the left upper pole, and 5 mm at the left lower pole. A 7 mm calcific density overlying the approximate distribution of the right mid ureter may represent a ureteral calculus. Phleboliths in the left pelvis. Nonobstructive bowel gas pattern. No free air. No acute osseous injury. Impression: Bilateral renal calculi measure up to 9 mm on the right and 5 mm on the left. 7 mm calcific density in the right lower abdomen may represent a right ureteral calculus. Signed by: Demarcus Rodriguez MD on 06/09/2020 4:36 PM Dictated By: DEMARCUS RODRIGUEZ MD 35 Transcribed By: MANSI on 06/09/201635 COPY TO: SAMSON JACK MD CHEST 2 VIEWS 2020-06-09 16:30:00 [place] [address] Patient Name: ABBI SAVAGE MR #: [id number] : 1940 Age/Sex: 79/M Req #: [id number] Adm Physician: Ordered by: SAMSON JACK MD Report #: [id number] Location: OR Room/Bed: Procedure: [id number] DX/CHEST 2 VIEWS Exam Date: 06/09/20 Exam Time: 1618 REPORT STATUS: Signed EXAMINATION: CHEST 2 VIEWS INDICATION: Pre-operative COMPARISON: None FINDINGS: LINES/TUBES:None LUNGS:The lungs are well-inflated. No focal consolidation or pulmonary edema. 5 mm right apical pulmonary nodule PLEURA:No pleural effusion or pneumothorax. MEDIASTINUM:The cardiomediastinal silhouette appears normal in size and shape. Atherosclerotic calcifications of the thoracic aorta. BONES/SOFT TISSUES:No acute osseous injury. ABDOMEN:No free air under the diaphragm. IMPRESSION: No focal pneumonia or pulmonary edema. 5 mm right apical pulmonary nodule. If the patient is high risk, consider chest CT on a nonurgent basis for further evaluation. Signed by: Demarcus Rodriguez MD on 06/09/2020 4:33 PM Dictated By: DEMARCUS RODRIGUEZ MD 163 Transcribed By: MANSI on 06/09/201632 COPY TO: SAMSON JACK MD
--- OUTSIDE RECORDS SUMMARY | 2020-06-27 18:42 | XMS REPORT | Continuity of Care Document ---
Author Author [facility] t Organization [facility] Address [address] [place] [address] [place] [address] Phone Unavailable Care Team Providers Care Certified Lactation Counselor Name Role Phone Malinda BRYSON Attphys Unavailable [...] Result Comments Source IR CONSULT 2020-06-25 09:36:00 [facility] [address] [place] [id number] Patient Name: ABBI SAVAGE MR #: [id number] : 1940 Age/Sex: 79/M Req #: [id number] [facility] Physician: MARYJANE BRYSON MD Ordered by: SAMSON JACK MD Report #: [id number] Location: MED/SURG Room/Bed: [facility] [place] Procedure: [id number] DX/IR CONSULT Exam Date: Exam Time: REPORT [...] percutaneous Estimated blood loss: < 5 cc. blue line operator: Martin Bailon MD. Special Education Bus Driver: None. Technique/findings: Informed written consent was obtained. [...] The needle was exchanged for a 6 Welsh AccuStick sheath. Gentle nephrostogram was performed confirming obstructing mid right ureteral stone. Initial attempt at traversing the stone with a wire was unsuccessful. A prolonged attempt was not made at traversing the stone given concern for acute infection. Subsequently, a 0.035 Amplatz wire was coiled within the right renal pelvis. The tract was dilated and an 8.5 Welsh nephrostomy catheter was advanced over wire with [...] MD NEPHRO/URET W IMG/INJ-NEW ACC 2020-06-25 09:36:00 [place] [address] Patient Name: ABBI SAVAGE MR #: [id number] : 1940 Age/Sex: 79/M Req #: [id number] Adm Physician: MARYJANE BRYSON MD Ordered by: SAMSON JACK MD Report #: [id number] Location: MED/SURG Room/Bed: [facility] [place] Procedure: [id number] IR/NEPHRO/URET W IMG/INJ-NEW ACC Exam Date: Exam [...] percutaneous Estimated blood loss: < 5 cc. blue line operator: Martin Bailon MD. Special Education Bus Driver: None. Technique/findings: Informed written consent was obtained. [...] The needle was exchanged for a 6 Welsh AccuStick sheath. Gentle nephrostogram was performed confirming obstructing mid right ureteral stone. Initial attempt at traversing the stone with a wire was unsuccessful. A prolonged attempt was not made at traversing the stone given concern for acute infection. Subsequently, a 0.035 Amplatz wire was coiled within the right renal pelvis. The tract was dilated and an 8.5 Welsh nephrostomy catheter was advanced over wire with [...] MD US GUIDANCE FOR PROCEDURE 2020-06-25 09:36:00 [place] [address] Patient Name: ABBI SAVAGE MR #: [id number] : 1940 Age/Sex: 79/M Req #: [id number] Adm Physician: MARYJANE BRYSON MD Ordered by: SAMSON JACK MD Report #: [id number] Location: MED/SURG Room/Bed: [facility] [place] Procedure: [id number] US/US GUIDANCE FOR PROCEDURE Exam Date: 06/25/20 [...] percutaneous Estimated blood loss: < 5 cc. blue line operator: Martin Bailon MD. Special Education Bus Driver: None. Technique/findi ngs: Informed written consent was [...] The needle was exchanged for a 6 Welsh AccuStick sheath. Gentle nephrostogram was performed confirming obstructing mid right ureteral stone. Initial attempt at traversing the stone with a wire was unsuccessful. A prolonged attempt was not made at traversing the stone given concern for acute infection. Subsequently, a 0.035 Amplatz wire was coiled within the right renal pelvis. The tract was dilated and an 8.5 Welsh nephrostomy catheter was advanced over wire with [...] SAMSON JACK MD ABDOMEN-1VIEW (KUB) 2020-06-24 10:14:00 [place] [address] Patient Name: ABBI SAVAGE MR #: [id number] : 1940 Age/Sex: 79/M Req #: [id number] Adm Physician: GIOVANNA MCDONALD MD Ordered by: SAMSON JACK MD Report #: [id number] Location: MED/SURG3 Room/Bed: [facility] Procedure: [id number] DX/ABDOMEN-1VIEW (KUB) Exam Date: 06/24/20 Exam Time: [...] JACK MD CT ABDOMEN/PELVIS W 2020-06-22 23:42:00 [place] [address] Patient Name: ABBI SAVAGE MR #: [id number] : 1940 Age/Sex: 79/M Req #: [id number] Adm Physician: Ordered by: ILENE KILLIAN DO Report #: [id number] Location: ER Room/Bed: Procedure: [id number] CT/CT ABDOMEN/PELVIS W Exam Date: 06/22/20 Exam [...] PM Dictated By: CARLOS BAHENA MD, MD [id number] Transcribed By: MANSI on 06/22/204 COPY TO: ILENE KILLIAN, DO CT CHEST WO 2020-06-19 10:11:00 [address] [place], [place] [address] Patient Name: ABBI SAVAGE MR #: [id number] : 1940 Age/Sex: 79/M Req #: [id number] Adm Physician: Ordered by: SAMSON JACK MD Report #: [id number] Location: CT Room/Bed: Procedure: [id number] CT/CT CHEST WO Exam Date: 06/19/20 Exam [...] SAMSON JACK MD ABDOMEN-1VIEW (KUB) 2020-06-09 16:34:00 [place] [address] Patient Name: ABBI SAVAGE MR #: [id number] : 1940 Age/Sex: 79/M Req #: [id number] Adm Physician: Ordered by: SAMSON JACK MD Report #: [id number] Location: OR Room/Bed: Procedure: [id number] DX/ABDOMEN-1VIEW (KUB) Exam Date: 06/09/20 Exam Time: [...] JACK MD CHEST 2 VIEWS 2020-06-09 16:30:00 [place] [address] Patient Name: ABBI SAVAGE MR #: [id number] : 1940 Age/Sex: 79/M Req #: [id number] Adm Physician: Ordered by: SAMSON JACK MD Report #: [id number] Location: OR Room/Bed: Procedure: [id number] DX/CHEST 2 VIEWS Exam Date: 06/09/20 Exam [...]
[2020-07-13] MEDS ORDERED: RAMIPRIL2.5 MG PO (15:02)
== END 2020-06-27 15:42 | disposition home or self-care (01) | DRG 872 ==
LOC: ER 21:52 → ERHOLD 06-23 01:34 → MED/SURG3 06-23 02:07 → MED/SURG 06-24 22:56
PROVIDERS: ADMIT Internal Medicine; ATTEND Internal Medicine
PROC: 0T9330Z Drainage of Right Kidney Pelvis with Drainage Device, Percutaneous Approach (ICD-10-PCS; principal; 2020-06-25 06:30)
DX: A41.9 Sepsis, unspecified organism (principal); N13.6 Pyonephrosis; N17.9 Acute kidney failure, unspecified; N12 Tubulo-interstitial nephritis, not specified as acute or chronic; R65.20 Severe sepsis without septic shock; I12.9 Hypertensive chronic kidney disease with stage 1 through stage 4 chronic kidney disease, or unspecified chronic kidney disease; N18.3 Chronic kidney disease, stage 3 (moderate); N40.1 Benign prostatic hyperplasia with lower urinary tract symptoms; R33.8 Other retention of urine; Z11.59 Encounter for screening for other viral diseases; B95.62 Methicillin resistant Staphylococcus aureus infection as the cause of diseases classified elsewhere; B95.2 Enterococcus as the cause of diseases classified elsewhere; I87.2 Venous insufficiency (chronic) (peripheral)
CPT/HCPCS: 36415; 50430; 74018; 74177; 74420; 74470; 76942; 80048; 80053; 80061; 80202; 81001; 82550; 82553; 82948; 83036; 83605; 83735; 84100; 84443; 84484; 85025; 85610; 87040; 87086; 87186; 93005; 99152; 99153; 99284; C1758; C1769; J0360; J0696; J1100; J1650; J2001; J2250; J2405; J3010; J3370; J7030; J7050; Q9967; U0002

== ENCOUNTER → 2020-07-21 | Day surgery (SDC) | payer MEDICARE, OTHER ==
[2020-07-14 13:08] LABS: BASOPHILS % 0.4 % (0.0-1.0); EOSINOPHILS # (AUTO) 0.1 (0.0-0.4); HEMATOCRIT 35.5 % (38.2-49.6); HEMOGLOBIN 11.3 g/dL (14.0-18.0); LYMPHOCYTES # (AUTO) 1.9 (1.0-3.2); LYMPHOCYTES % 35.7 % (18.0-39.1); MEAN CORPUSCULAR HEMOGLOBIN 30.7 pg (28-32); MEAN CORPUSCULAR HGB CONC 31.8 g/dL (31-35); MEAN CORPUSCULAR VOLUME 96.5 fL (81-99); MONOCYTES # (AUTO) 0.4 (0.2-0.8); MONOCYTES % 7.6 % (4.4-11.3); NEUTROPHILS # (AUTO) 2.9 (2.1-6.9); NEUTROPHILS % 55.1 % (38.7-80.0); PLATELET COUNT 177 x10e3/uL (140-360); RED BLOOD COUNT 3.68 x10e6/uL (4.3-5.7); RED CELL DISTRIBUTION WIDTH 13.7 % (11.7-14.4)
--- NOTE | 2020-07-14 14:39 | Diagnostic Imaging Report ---
X-ray chest PA and lateral Comparison: None History: Preop Findings: Central airways are unremarkable. Heart size is borderline normal. Aorta is atherosclerotic and tortuous. There is an opacity with a sharp right border in the superior mediastinum that goes to the neck. The right paratracheal stripe is crisp. The right paraspinal line superiorly is obscured. This could represent a vascular marking such as an ectatic brachiocephalic artery are less likely aberrant origin of the right subclavian artery. A thyroid lesion would be another less likely possibility due to the findings. CT of the chest can resolve this without difficulty. There is possibility of a right apical lung nodule that measures approximately 8 mm x 5 mm. There is no lung infiltrate. No significant skeletal abnormality seen. Upper abdomen is unremarkable. Impression: No acute cardiopulmonary disease. Right superior mediastinal opacity that can be further evaluated with chest CT along with the right apical pulmonary nodule on a non urgent basis. Signed by: Jose Garcia MD on 07/14/2020 2:35 PM
--- NOTE | 2020-07-16 16:00 | NUR ---
PT Elizabeth SAVAGE FOR [facility] WAS RESCHEDULED FROM 07/18/-07/21. PT TESTED NEGATIVE FOR COVID 07/14/2020. PER NEW POLICY MAY USE SAME TEST IF PT ASYMPTOMATIC AND SELF QUARANTINED. SPOKE WITH PT 07/16/2020 AND PT CONFIRMS ASYMPTOMATIC AND HAS BEEN SELF QUARANTINED SINCE 07/14. Addendum: 07/17/20 at 0842 by Alem Clark RN WILLIAM WITH CHARGE NURSE JAVAD 07/17 @6933. SHE IS AWARE THAT PT WAS NOT RETESTED R/T NEW ALGORITHM POLICY.
[~2020-07-21] VITALS: Ht 167.6 cm; Wt 73.0 kg
[~2020-07-21] MED LIST changes: +CEFTRIAXONE SOD 1 GM/NS 50 ML 50 ML IV ONE; +DEXAMETHASONE SOD PHOS INJ 4 MG/ML VIAL ONE; +FENTANYL CITRATE/PF 100MCG/2 ML INJ ONE; +IOPAMIDOL 300MG/ML 50ML INFUS..BTL IV ONE; +LIDOCAINE HCL 2% LOCAL INJ 5 ML SDV VIAL INJ ONE; +ONDANSETRON HCL INJ 2MG/ML 2ML 2 MG/ML VIAL ONE; +PROPOFOL IV EMULSION 10 MG/ML 20 ML VIAL ONE; +RAMIPRIL2.5 MG PO; +SEVOFLURANE INHAL SOLN 250 ML PEN BTL ONE
[2020-07-21 09:28] VITALS: BP 131/85
--- NOTE | 2020-07-23 12:20 | Operative Report ---
DATE OF PROCEDURE: 07/21/2020 SURGEON: Edgar Colmenares MD PREOPERATIVE DIAGNOSES: 1. Right ureteral calculus. 2. Right nephrostomy. 3. Right hydronephrosis. POSTOPERATIVE DIAGNOSES: 1. Right ureteral calculus. 2. Right nephrostomy. 3. Right hydronephrosis. PROCEDURES: 1. Right-sided ureteroscopy with laser lithotripsy and stent placement in a staged fashion. 2. Supervision of fluoroscopy for both ureteroscopic and stent insertion portion. 3. Interpretation of retrograde pyelography. ANESTHESIA: General. ESTIMATED BLOOD LOSS: Minimal. COMPLICATIONS: None. INDICATIONS FOR PROCEDURE: Mr. Jimenez is a very pleasant 79-year-old male with prior lithotripsy, unable to place stent, now presenting for ureteroscopy. He voiced understanding of the options, alternatives, risks, and benefits. He elected to proceed. PROCEDURE IN DETAIL: After informed consent was obtained, the patient was taken to operative suite, placed supine on the operating table, underwent general anesthesia by the Anesthesia Service, was placed in dorsal lithotomy position, and sterilely prepped and draped for cystoscopy. A 21-Indonesian cystoscope was inserted per urethra. Normal urethra was noted. There was trilobar prostatic hypertrophy. Panendoscopy of the bladder revealed no tumors, no stones. Right guidewire was advanced to the level of stone. Second safety wire was introduced. Ureter was dilated. A flexible ureteroscope was advanced to the level of stone. Stone was densely impacted and mucosalized as seen on image #1 and #2 With moderate difficulty, this area was unroofed utilizing 365 micron laser fiber. The stone was fragmented as much as possible in the inside, best seen on image #3. Image #4, the ureteroscope was advanced to the level of renal pelvis and calyx showing calys and the wire. With the inability to pull the stone out of the wall due to being mucosalized, we placed a 6 x 26 ureteral stent with a coil in the renal pelvis and a coil in the bladder. Plan on eswl to hopefully fragment these embedded fragments, so we can return later and basket extract them. Supervision of fluoroscopy and interpretation of retrograde pyelography: I was present for the entire procedure and supervised fluoroscopy. There was no radiologist present. Attention was turned towards right ureter, which was catheterized with ureteroscope. Retrograde pyelogram was performed with ureteroscope revealing densely impacted ureteral calculus on the right side. Ureteral stent in adequate position on right side. MD JUNG Sanchez/CARMITA /[id number] MTDCathleen
== END | disposition home or self-care (01) ==
LOC: OR 06:15
PROVIDERS: ATTEND Urology
DX: N20.1 Calculus of ureter (principal); N13.30 Unspecified hydronephrosis; Z93.6 Other artificial openings of urinary tract status; I12.9 Hypertensive chronic kidney disease with stage 1 through stage 4 chronic kidney disease, or unspecified chronic kidney disease; N18.3 Chronic kidney disease, stage 3 (moderate); N20.0 Calculus of kidney; N28.1 Cyst of kidney, acquired; N40.1 Benign prostatic hyperplasia with lower urinary tract symptoms; R35.1 Nocturia; N52.9 Male erectile dysfunction, unspecified; I83.90 Asymptomatic varicose veins of unspecified lower extremity; Z01.810 Encounter for preprocedural cardiovascular examination; Z01.812 Encounter for preprocedural laboratory examination; Z01.818 Encounter for other preprocedural examination; Z11.59 Encounter for screening for other viral diseases; Z79.82 Long term (current) use of aspirin
CPT/HCPCS: 36415; 52356; 71046; 74420; 85025; 93005; C1758 ×2; C1769; C2617; J0696; J1100; J2001; J2405; J2704; J3010; Q9967; U0002

== ENCOUNTER 2020-07-28 15:47 | Emergency (ER) | payer MEDICARE ==
[~2020-07-28] VITALS: Ht 167.6 cm; Wt 72.6 kg
[~2020-07-28 15:47] MED LIST changes: -CEFTRIAXONE SOD 1 GM/NS 50 ML 50 ML IV ONE; -DEXAMETHASONE SOD PHOS INJ 4 MG/ML VIAL ONE; -FENTANYL CITRATE/PF 100MCG/2 ML INJ ONE; -IOPAMIDOL 300MG/ML 50ML INFUS..BTL IV ONE; -LIDOCAINE HCL 2% LOCAL INJ 5 ML SDV VIAL INJ ONE; -ONDANSETRON HCL INJ 2MG/ML 2ML 2 MG/ML VIAL ONE; -PROPOFOL IV EMULSION 10 MG/ML 20 ML VIAL ONE; -SEVOFLURANE INHAL SOLN 250 ML PEN BTL ONE
--- OUTSIDE RECORDS SUMMARY | 2020-07-28 16:30 | XMS REPORT | Continuity of Care Document ---
Author Author [facility] t Organization [facility] Address [address] [place] [address] Phone Unavailable Care Team Providers Care Bull Float Finisher Name Role Phone MD DAVID PATINO PCP SAMSON JACK Attphys Unavailable DAHU, S JIRIES Attphys Unavailable DAHU, S JIRIES Admphys Unavailable Problems Condition Name Condition Details Condition Category Status Onset Date Resolution Date Last Treatment Date Treating Clinician Comments Source Severe sepsis Problem Active [facility] Hydroureter Problem Active [facility] Urinary tract infection Problem Active [facility] Calculus of ureter Problem Active [facility] Allergies, Adverse Reactions, Alerts This patient has no known allergies or adverse reactions. Social History Social Habit Start Date Stop Date Quantity Comments Source Sex Assigned At 1940 00:00:00 1940 00:00:00 Male [facility] Medications Ordered Medication Name Filled Medication Name Start Date Stop Da te Current Medication? Ordering Clinician Indication Dosage Frequency Signature (SIG) Comments Components Source Amlodipine Besylate Amlodipine Besylate Yes 5 Daily [facility] Aspirin (Aspir 81) 81 Mg TABLET. Aspirin (Aspir 81) 81 Mg TABLET. Yes 81 Daily [facility] Multivitamin (Multivitamins) 1 Each CAPSULE Multivitam in (Multivitamins) 1 Each CAPSULE Yes 1 Daily [facility] Ramipril Ramipril 2020-06-27 00:00:00 No 2.5 Bedtime [facility] Vital Signs Vital Name Observation Time Observation Value Comments Source Body Temperature 2020-06-27 12:27:00 98.2 [degF] [facility] Weight 2020-06-24 22:18:00 163 [lb_av] [facility] BMI (Body Mass Index) 2020-06-24 22:18:00 26.3 kg/m2 [facility] Procedures Procedure Date / Time Performed Performing Clinician Vikas e Echo guide for biopsy 2020-06-25 00:00:00 [facility] Computed tomography of abdomen and pelvis with contrast 00:00:00 [facility] Computed tomography of chest without contrast 2020-06-19 00:00:0 0 [facility] FRAGMENTING OF KIDNEY STONE 2020-06-13 00:00:00 [facility] X-ray of chest, two views 2020-06-09 00:00:00 [facility] Plan of Care Planned Activity Planned Date Details Comments Source Instructions Post Operative Pain [facility] Encounters Start Date/Time End Date/Time Encounter Type Admission Type [facility] Care Department Encounter ID Source 2020-06-23 01:34:00 2020-06-27 15:42:00 Discharged Inpatient 1 MARYJANE BRYSON [facility] [id number] [facility] 2020-06-19 09:34:00 2020-06-19 09:34:00 [facility] [id number] [facility] 2020-06-13 06:01:00 2020-06-13 06:01:00 Registered Surgical Day Car e 3 [facility] [id number] [facility] Results Test Description Test Time Test Comments Results Result Comments Source ABDOMEN-1VIEW (KUB) 2020-07-25 12:43:00 [place] [address] Patient Name: ABBI SAVAGE MR #: [id number] : 1940 Age/Sex: 79/M Req #: [id number] Adm Physician: Ordered by: SAMSON JACK MD Report #: [id number] Location: OR Room/Bed: Procedure: [id number] DX/ABDOMEN-1VIEW (KUB) Exam Date: Exam Time: REPORT STATUS: Signed EXAM: ABDOMEN-1VIEW (KUB) DATE: 07/25/2020 12:32 PM INDICATION: Preoperative evaluation COMPARISON: CT from 06/22/2020 FINDINGS: Right sided percutaneous nephrostomy catheter and double-J ureteral stent identified in place. 8 mm calcification identified pro jecting over the superior pole of the right kidney likely representing a renal stone. Additional 7 mm stone identified along the course of the mid right ureter. 5 mm calcification noted projecting over the inferior pole of the left kidney. Suspected phleboliths noted within the left hemipelvis. Bowel gas pattern is nonobstructive. Degenerative changes noted of the thoracolumbar spine. No acute osseous abnormality is identified. IMPRESSION: 8 mm right upper pole renal stone and 7 mm mid right ureteral stone. Right-sided nephrostomy catheter and double-J ureteral stent identified in place. 5 mm left inferior pole renal stone. Signed by: Dr. Martin Bailon MD on 07/25/2020 12:48 PM Dictated By: MARTIN BAILON MD 1248 Transcribed By: MANSI on 07/25/20 1248 COPY TO: SAMSON JACK MD CHEST 2 VIEWS 2020-07-14 14:28:00 [place] [address] Patient Name: ABBI SAVAGE MR #: [id number] : 1940 Age/Sex: 79/M Req #: [id number] Adm Physician: Ordered by: SAMSON JACK MD Report #: [id number] Location: OR Room/Bed: Procedure: [id number] DX/CHEST 2 VIEWS Exam Date: 07/14/20 Exam Time: 1347 REPORT STATUS: Signed X-ray chest PA and lateral Comparison: None History: Preop Findings: Central airways are unremarkable. Heart size is borderline normal. Aorta is atherosclerotic and tortuous. There is an opacity with a sharp right border in the superior mediastinum that goes to the neck. The right paratracheal stripe is crisp. The right paraspinal line superiorly is obscured. This could represent a vascular marking such as an ectatic brachiocephalic artery are less likely aberrant origin of the right subclavian artery. A thyroid lesion would be another less likely possibility due to the findings. CT of the chest can resolve this without difficulty. There is possibility of a right apical lung nodule that measures approximately 8 mm x 5 mm. There is no lung infiltrate. No significant skeletal abnormality seen. Upper abdomen is unremarkable. Imp ression: No acute cardiopulmonary disease. Right superior mediastinal opacity that can be further evaluated with chest CT along with the right apical pulmonary nodule on a non urgent basis. Signed by: Jose Estrada MD on 07/14/2020 2:35 PM Dictated By: JOSE ESTRADA MD 34 Transcribed By: MANSI on 07/14/201434 COPY TO: SAMSON JACK MD Serum or plasma trough vancomycin level at trough (mas s/volume) 2020-06-26 10:07:00 Test Item Vancomycin Level Trough (test code = 4092-3) 7.2 5.0-10.0 [facility] automated count (number/volume)2020-06-26 05:00:00* Test Item Value Reference Range Interpretation Comments White Blood Count (test code = 6690-2) 5.98 4.8-10.8 [facility] erythrocytes automated count (number/volume)2020-06-26 05:00:00* Test Item Value Reference Range Interpretation Comments Red Blood Count (test code = 789-8) 3.26 4.3-5.7 [facility] hemoglobin measurement (moles/volume)2020-06-26 05:00:00* Test Item Value Reference Range Interpretation Comments Hemoglobin (test code = 38751-1) 10.3 14.0-18.0 [facility] HospitalAutomated blood hematocrit (volume fraction)2020-06-26 05:00:00* Test Item Value Reference Range Interpretation Comments Hematocrit (test code = 4544-3) 31.4 38.2-49.6 [facility] HospitalAutomated erythrocyte mean corpuscular eklyiq2956-67-64 05:00:00* Test Item Value Reference Range Interpretation Comments Mean Corpuscular Volume (test code = 787-2) 96.3 81-99 [facility] HospitalAutomated erythrocyte mean corpuscular hemoglobin (mass per erythrocyte)2020-06-26 05:00:00* Test Item Value Reference Range Interpretation Comments Mean Corpuscular Hemoglobin (test code = 785-6) 31.6 28-32 [facility]Autom[facility] erythrocyte mean corpuscular hemoglobin concentration measurement (mass/volume)2020-06-26 05:00:00* Test Item Value Reference Range Interpretation Comments Mean Corpuscular Hemoglobin Concent (test code = 786-4) 32.8 31-35 [facility] HospitalRDW UwxCv-Paq2460-29-30 05:00:00* Test Item Value Reference Range Interpretation Comments Red Cell Distribution Width (test code = 90026-2) 13.8 11.7 -14.4 [facility] HospitalAutomated blood platelet count (count/volume)2020-06-26 05:00:00* Test Item Value Reference Range Interpretation Comments Platelet Count (test code = 777-3) 133 140-360 [facility] HospitalAutomated blood segmented neutrophil count as percentage of total rbfueypozv1472-25-21 05:00:00* Test Item Value Reference Range Interpretation Comments Neutrophils (%) (Auto) (test code = 56107-1) 73.9 38.7-80.0 [facility] HospitalAutomated blood lymphocyte count as percentage ot total ngfuuzloxl9042-84-72 05:00:00* Test Item Value Reference Range Interpretation Comments Lymphocytes (%) (Auto) (test code = 736-9) 13.9 18.0-39.1 [facility] HospitalAutomated blood monocyte count as percentage of total qywnzoekod0084-47-06 05:00:00* Test Item Value Reference Range Interpretation Comments Monocytes (%) (Auto) (test code = 5905-5) 11.5 4.4-11.3 [facility] HospitalAutomated blood eosinophil count as percentage of total higpfqknqv3706-19-76 05:00:00* Test Item Value Reference Range Interpretation Comments Eosinophils (%) (Auto) (test code = 713-8) 0.2 0.0-6.0 [facility] HospitalAutomated blood basophil count as percentage of total ckqecnrijq1714-39-86 05:00:00* Test Item Value Reference Range Interpretation Comments Basophils (%) (Auto) (test code = 706-2) 0.0 0.0-1.0 [facility] HospitalFluoroscopic procedure less than one hour sqacrsba7645-89-71 05:00:00* Test Item Value Reference Range Interpretation Comments IM GRANULOCYTES % (test code = IM GRANULOCYTES %) 0.5 0.0- 1.0 [facility] HospitalAutomated blood neutrophil count 2020-06-26 05:00:00* Test Item Value Reference Range Interpretation Comments Neutrophils # (Auto) (test code = 751-8) 4.4 2.1-6.9 [facility] HospitalBlood lymphocytes count (number/volume) 2020-06-26 05:00:00* Test Item Value Reference Range Interpretation Comments Lymphocytes # (Auto) (test code = 61237-6) 0.8 1.0-3.2 [facility] HospitalBlood monocytes automated count (number/volume)2020-06-26 05:00:00* Test Item Value Reference Range Interpretation Comments Monocytes # (Auto) (test code = 742-7) 0.7 0.2-0.8 [facility] HospitalAutomated blood eosinophil count 2020-06-26 05:00:00* Test Item Value Reference Range Interpretation Comments Eosinophils # (Auto) (test code = 711-2) 0.0 0.0-0.4 [facility] HospitalAutomated blood basophil count (count/volume)2020-06-26 05:00:00* Test Item Value Reference Range Interpretation Comments Basophils # (Auto) (test code = 704-7) 0.0 0.0-0.1 [facility] HospitalFluoroscopic procedure less than one hour prdhwnpu7013-25-83 05:00:00* Test Item Value Reference Range Interpretation Comments Absolute Immature Granulocyte (auto (kaylie t code = Absolute Immature Granulocyte (auto) 0.03 0-0.1 [facility]um or plasma sodium measurement (moles/volume)2020-06-26 05:00:00* Test Item Value Reference Range Interpretation Comments Sodium Level (test code = 2951-2) 138 136-145 [facility] Hospitalerum or plasma potassium measurement (moles/volume)2020-06-26 05:00:00* Test Item Value Reference Range Interpretation Comments Potassium Level (test code = 2823-3) 4.1 3.5-5.1 [facility] Hospitalerum or plasma chloride measurement (moles/volume)2020-06-26 05:00:00* Test Item Value Reference Range Interpretation Comments Chloride Level (test code = 2075-0) 109 98-107 [facility] Hospitalerum or plasma carbon dioxide, total measurement (moles/volume)2020-06-26 05:00:00* Test Item Value Reference Range Interpretation Comments Carbon Dioxide Level (test code = 2028-9) 20 22-29 [facility] Hospitalerum or plasma anion rqo7287-63-01 05:00:00* Test Item Value Reference Range Interpretation Comments Anion Gap (test code = 17682-2) 13.1 8-16 [facility]erum or plasma urea nitrogen measurement (mass/volume)2020-06-26 05:00:00* Test Item Value Reference Range Interpretation Comments Blood Urea Nitrogen (test code = 3094-0) 29 7-26 [facility]erum or plasma creatinine measurement (mass/volume)2020-06-26 05:00:00* Test Item Value Reference Range Interpretation Comments Creatinine (test code = 2160-0) 1.36 0.72-1.25 [facility] Hospitalerum or plasma urea nitrogen/creatinine mass gmxgb4203-47-02 05:00:00* Test Item Value Reference Range Interpretation Comments BUN/Creatinine Ratio (test code = 3097-3) 21 6-25 [facility] HospitalEstimated glomerular filtration rate (GFR) eaappmrbyehwe5801-53-28 05:00:00* Test Item Value Reference Range Interpretation Comments Estimat Glomerular Filtration Rate (test code = 650265848) 51 >60 Ranges were taken from the National Kidney Disease Education Program and the [facility] literature.Reference ranges:60 or greater: Ixzuau30-59 ( for 3 consecutive months): Chronic kidney disease 15 or less: Kidney failureHouston Methodist Willowbrook HospitalGlucose ghcthpnihzu8749-78-91 05:00:00* Test Item Value Reference Range Interpretation Comments Glucose Level (test code = RQR5742) 136 74-118 [facility] Hospitalerum or plasma calcium measurement (mass/volume)2020-06-26 05:00:00* Test Item Value Reference Range Interpretation Comments Calcium Level (test code = 60990-8) 8.2 8.4-10.2 [facility] HospitalIR YQJSBRY6512-44-78 09:36:00 [facility] [address] [place] [address] Patient Name: ABBI SAVAGE MR #: [id number] : 1940 Age/Sex: 79/M Req #: [id number] [facility] Physician: MARYJANE BRYSON MD Ordered by: SAMSON JACK MD Report #: [id number] Location: MED/SURG Room/Bed: [facility] Procedure: [id number] DX/IR CONSULT Ex am Date: Exam Time: REPORT STATUS: Signed Right percutaneous nephrostomy catheter p lacement History: Right-sided hydronephrosis secondary to obstructive ureteral stone. Modality: Ultrasound and fluoroscopy Sedation: Versed 1 mg and fentany l 50 mcg was given intravenously for conscious sedation. Vital signs were mon itored throughout the procedure by a nurse, and remained stable. Physician int ra-service time was 30 minutes. Fluoroscopy Time: 1.9 min. Reference Air Kerma (Ka, r): 13.1 mGy. Approa ch: Right flank, percutaneous Estimated blood loss: < 5 cc. copy machine operator: Martin Bailon MD. Software Engineer: None. Technique/findings: Informed written consent was [...] The needle was exchanged for a 6 [place] AccuStick sheath. Gentle nephr ostogram was performed confirming obstructing mid right ureteral stone. Initia l attempt at traversing the stone with a wire was unsuccessful. A prolonged at tempt was not made at traversing the stone given concern for acute infection. Subsequently, a 0.035 Amplatz wire was coiled within the right renal pelvis. T he tract was dilated and an 8.5 [place] nephrostomy catheter was advanced over wire with pigtail formed within the right renal pelvis. Contrast injection con firms appropriate positioning. The catheter spaces [address] sterile [address] essamari was applied. The patient told the procedure without immediate compli cation. Impression: Successful ultr asound and fluoroscopic guided right percutaneous the prostate catheter placem ent. Can consider attempt at conversion to nephroureterostomy after acute issues resolve if clinically desired. Signed by: Dr. Martin Bailon MD on 06/25/2020 9:41 AM Dictated By: MARTIN BAILON MD 0 Transcribed By: MANSI on 06/25/20940 COPY TO: SAMSON JACK MD NEPHRO/SADET W IMG/INJ-NEW [id number] 09:36:00 [place] [address] Patient Name: ABBI SAVAGE MR #: [id number] : 1940 Age/Sex: 79/M Req #: [id number] Adm Physician: MARYJANE BRYSON MD Ordered by: SAMSON JACK MD Report #: [id number] Location: MED/SURG Room/Bed: [facility] Procedure: IR/NEPHRO/URET W IMG/INJ-NEW [facility] Exam Date: Exam Time: REPORT STATUS: Signed Right percutaneous nep hrostomy catheter placement History: Right-si ded hydronephrosis secondary to obstructive ureteral stone. Modality: Ultrasound and fluoroscopy Sedation: Vers ed 1 mg and fentanyl 50 mcg was given intravenously for conscious sedation. V ital signs were monitored throughout the procedure by a nurse, and remained st able. Physician intra-service time was 30 minutes. Fluoroscopy Time: 1. 9 min. Reference Air Kerma (Ka, r): 13.1 mGy. Approach: Right flank, percutaneous Estimated blood loss: < 5 cc. copy machine operator: Martin Bailon MD. Software Engineer: None. Techn ique/findings: Informed written consent was obtained. Discussion of risks, be nefits, and alternatives were made with the patient. The patient expressed und erstanding and agreed to proceed. A universal timeout was performed prior to starting the procedure. All elements maximal sterile barrier technique was ut ilized for this procedure, including utilization of sterile scrub solution for skin prep, a large sterile sheet to cover the areas of the patient that were not prepped, and hand hygiene, mask, head covering, and sterile gown for perfo rming radiologist and scrub technologist. Initial ultrasound images demon strate severe right-sided hydronephrosis. 2% lidocaine was used for local anes thesia. Using ultrasound guidance, following acquisition of prior images, a 21 -gauge Chiba needle was advanced into a right lower calyx. Return of urine and contrast injection confirmed intraluminal placement within the calyx. A 0.018 wire was advanced through the needle and coiled within the right renal pelvis . The needle was exchanged for a 6 [place] AccuStick sheath. Gentle nephr ostogram was performed confirming obstructing mid right ureteral stone. Initia l attempt at traversing the stone with a wire was unsuccessful. A prolonged at tempt was not made at traversing the stone given concern for acute infection. Subsequently, a 0.035 Amplatz wire was coiled within the right renal pelvis. T he tract was dilated and an 8.5 [place] nephrostomy catheter was advanced over wire with pigtail formed within the right renal pelvis. Contrast injection con firms appropriate positioning. The catheter spaces [address] essamari was applied. The patient told the procedure without immediate compli cation. Impression: Successful ultr asound and fluoroscopic guided right percutaneous the prostate catheter placem ent. Can consider attempt at conversion to nephroureterostomy after acute issues resolve if clinically desired. Signed by: Dr. Martin Bailon MD on 06/25/2020 9:41 AM Dictated By: MARTIN BAILON MD 0 Transcribed By: MANSI on 06/25/20940 COPY TO: SAMSON JACK MD US GUIDANCE FOR WMNJVHBPH1622-12-02 09:36:00 [place] [address] Patient Name: ABBI SAVAGE MR #: [id number] : 1940 Age/Sex: 79/M Req #: [id number] Adm Physician: MARYJANE BRYSON MD Ordered by: SAMSON JACK MD Report #: [id number] Location: MED/SURG Room/Bed: [facility] Procedure: US/US GUIDANCE FO R PROCEDURE Exam Date: 06/25/20 Exam Time: 832 REPORT STATUS: Signed Right percutan eous nephrostomy catheter placement History: Right-sided hydronephrosis secondary to obstructive ureteral stone. Modality: Ultrasound and fluoroscopy Sedati on: Versed 1 mg and fentanyl 50 mcg was given intravenously for conscious betty tion. Vital signs were monitored throughout the procedure by a nurse, and rem ained stable. Physician intra-service time was 30 minutes. Fluoroscopy Time: 1.9 min. Reference Air Kerma (Ka, r): 13.1 mGy. Approach: Right flank, percutaneous Estimated blood l oss: < 5 cc. copy machine operator: Martin Bailon MD. Software Engineer: None. Technique/findings: Informed written consent was [...] The needle was exchanged for a 6 [place] AccuStick sheath. Gentle nephrostogram was performed confirming obstructing mid right ureteral stone. Initial attempt at traversing the stone with a wire was unsuccessful. A prolonged attempt was not made at traversing the stone given concern for acute infection. Subsequently, a 0.035 Amplatz wire was coiled within the right renal pelvis. The tract was dilated and an 8.5 [place] nephrostomy catheter was advanced over wire with [...] on 06/25/20940 COPY TO: SAMSON JACK MD Prothrombin time (PT) in platelet poor plasma by coagulation lhjph8591-42-37 07:48:00* Test Item Value Reference Range Interpretation Comments Prothrombin Time (test code = 5902-2) 14.2 11.9-14.5 [facility] HospitalINR in Platelet poor plasma by Coagulation pluur8826-16-96 07:48:00* Test Item Value Reference Range Interpretation Comments Prothromb Time International Ratio (test code = 6301-6) 1.05 Oral Anticoagulant Therapy INR Values:1. Low Intensity Therapy 1.5 - 2.02 . Moderate Intensity Therapy 2.0 - 3.03. High Intensity Therapy(1) 2.5 - 3. 54. High Intensity Therapy(2) 3.0 - 4.05. Panic Value INR > 5.0 [facility] HospitalCapillary blood glucose measurement by glucometer (mass/volume)2020-06-24 16:18:00* Test Item Value Reference Range Interpretation Comments Bedside Glucose (test code = 66916-0) 109 70-120 Meter ID: [id number] Methodist Willowbrook HospitalABDOMEN-1VIEW (KUB) 2020-06-24 10:14:00 [place] [address] Patient Name: ABBI SAVAGE MR #: [id number] : 1940 Age/Sex: 79/M Req #: [id number] Adm Physician: GIOVANNA MCDONALD MD Ordered by: SAMSON JACK MD Report #: [id number] [facility]: [facility] Room/Bed: [facility] Procedure: [id number] DX/ABDOMEN-1VIEW (KUB) Exam Date: 06/24/20 Exam Time: 932 REPORT STATUS: Signed Exam: KUB - 2 views Indication: Renal calculus Comparison: CT abdomen and pelvis of 020 Findings: 8 mm right upper pole calculus and 5 mm left lower pole ca lculus corresponds with findings on the CT of 06/22/2020. 7 mm calcific density on the right at the level of L4 corresponds with the right ureteral calculus seen on CT. No additional radiographically apparent urinary calculi. Nonobstru ctive bowel gas pattern. No free air. No acute osseous injury. Mild degenerati ve changes of the visualized spine and hip joints. Phleboliths in the pelvis. Impression: Right and left renal calculi and right ureteral calculus as a wes correspond to findings on recent CT. Signed by: Demarcus Rodriguez MD on 10:17 AM Dictated By: DEMARCUS RODRIGUEZ MD 1017 Transcribed By: MANSI on 06/24/20 1017 [employer] Y TO: SAMSON JACK MD Serum or plasma total bilirubin measurement (mass/volume)2020-06-24 05:30:00* Test Item Value Reference Range Interpretation Comments Total Bilirubin (test code = 1975-2) 0.6 0.2-1.2 [facility] HospitalFluoroscopic procedure less than one hour [id number] 05:30:00* Test Item Value Reference Range Interpretation Comments Aspartate Amino Transf (AST/SGOT) (test code = Aspartate Amino Transf (AST/SGOT)) 32 5-34 [facility] Hospitalerum or plasma alanine aminotransferase measurement (enzymatic activity/volume)2020-06-24 05:30:00* Test Item Value Reference Range Interpretation Comments Alanine Aminotransferase (ALT/SGPT) (test code = 1742-6) 16 0-55 [facility] [facility] protein [facility] (mass/volume)2020-06-24 05:30:00* Test Item Value Reference Range Interpretation Comments Total Protein (test code = 2885-2) 6.8 6.5-8.1 [facility] plasma albumin measurement (mass/volume)2020-06-24 05:30:00* Test Item Value Reference Range Interpretation Comments Albumin (test code = 1751-7) 3.0 3.5-5.0 [facility] (mass/volume) 2020-06-24 05:30:00* Test Item Value Reference Range Interpretation Comments Globulin (test code = 57092-0) 3.8 2.3-3.5 [facility] or plasma albumin/globulin mass roibq4428-39-50 05:30:00* Test Item Value Reference Range Interpretation Comments Albumin/Globulin Ratio (test code = 1759-0) 0.8 0.8-2.0 [facility] alkaline phosphatase measurement (enzymatic activity/volume)2020-06-24 05:30:00* Test Item Value Reference Range Interpretation Comments Alkaline Phosphatase (test code = 6768-6) 43 40-150 [facility] color edkesrgxzkeaj2380-25-56 20:20:00* Test Item Value Reference Range Interpretation Comments Urine Color (test code = 5778-6) YELLOW YELLOW [facility]Urine [id number] 20:20:00* Test Item Value Reference Range Interpretation Comments Urine Clarity (test code = 39232-8) SL CLOUDY CLEAR [facility]pecific gravity of Urine by Test strip 2020-06-23 20:20:00* Test Item Value Reference Range Interpretation Comments Urine Specific [place] (test code = 5811-5) 1.020 1.010-1.02 5 [facility] pH measurement by automated test [id number] 20:20:00* Test Item Value Reference Range Interpretation Comments Urine pH (test code = 94769-0) 6 5-7 [facility] leukocyte esterase detection by [id number] 20:20:00* Test Item Value Reference Range Interpretation Comments Urine Leukocyte Esterase (test code = 5799-2) NEGATIVE NEGATIVE [facility] nitrite cimhaglnq1377-55-00 20:20:00* Test Item Value Reference Range Interpretation Comments Urine Nitrite (test code = 20375-0) NEGATIVE NEGATIVE [facility] protein measurement by test strip (mass/volume)2020-06-23 20:20:00* Test Item Value Reference Range Interpretation Comments Urine Protein (test code = 5804-0) 2+ NEGATIVE [facility] glucose oyrqxsixy8306-70-11 20:20:00* Test Item Value Reference Range Interpretation Comments Urine Glucose (UA) (test code = 2349-9) NEGATIVE NEGATIVE [facility] ketones detection by automated test eadjy9472-43-20 20:20:00* Test Item Value Reference Range Interpretation Comments Urine Ketones (test code = 45268-2) NEGATIVE NEGATIVE [facility] urobilinogen measurement by test strip (mass/volume)2020-06-23 20:20:00* Test Item Value Reference Range Interpretation Comments Urine Urobilinogen (test code = 46563-0) 0.2 0.2-1 [facility] total bilirubin measurement (mass/volume)2020-06-23 20:20:00* Test Item Value Reference Range Interpretation Comments Urine Bilirubin (test code = 1978-6) NEGATIVE NEGATIVE [facility] erythrocytes pdnizvuut9942-83-36 20:20:00* Test Item Value Reference Range Interpretation Comments Urine Blood (test code = 58627-0) MODERATE NEGATIVE [facility] HospitalAutomated urine sediment leukocyte count by microscopy (number/high power field)2020-06-23 20:20:00* Test Item Value Reference Range Interpretation Comments Urine WBC (test code = 5821-4) 0-5 0-5 [facility] HospitalErythrocytes detection in urine sediment by light aekpznnkuq3216-08-70 20:20:00* Test Item Value Reference Range Interpretation Comments Urine RBC (test code = 76755-0) 6-10 0-5 [facility] HospitalBacteria detection in urine sediment by light bhzbkxnzfl1501-79-14 20:20:00* Test Item Value Reference Range Interpretation Comments Urine Bacteria (test code = 32987-0) MODERATE NONE [facility] HospitalEpithelial cells detection in urine sediment by light sygmavwdye4381-77-25 20:20:00* Test Item Value Reference Range Interpretation Comments Urine Epithelial Cells (test code = 51900-8) NONE NONE [facility] HospitalFluoroscopic procedure less than one hour fqaqwazh3289-92-78 06:10:00* Test Item Value Reference Range Interpretation Comments Hemoglobin A1c Percent (test code = Hemoglobin A1c Percent) 5.3 4.0-7.0 [facility] HospitalPhosphorus uqvtoogiggc3410-10-04 06:10:00 * Test Item Value Reference Range Interpretation Comments Phosphorus Level (test code = RFL5293) 2.4 2.3-4.7 [facility] magnesium measurement (mass/volume)2020-06-23 06:10:00* Test Item Value Reference Range Interpretation Comments Magnesium Level (test code = 99518-5) 2.0 1.3-2.1 [facility] triglyceride measurement (mass/volume)2020-06-23 06:10:00* Test Item Value Reference Range Interpretation Comments Triglycerides Level (test code = 2571-8) 52 0-149 [facility] cholesterol measurement (mass/volume)2020-06-23 06:10:00* Test Item Value Reference Range Interpretation Comments Cholesterol Level (test code = 2093-3) 133 0-199 Less than 200 mg/dL Low Qmxn718 - 239 mg/dL Borderline Yrte136 m g/dl and greater High Risk [facility] cholesterol in LDL measurement (mass/volume) 2020-06-23 06:10:00* Test Item Value Reference Range Interpretation Comments LDL Cholesterol (test code = 2089-1) 78 60-130 [facility] cholesterol in HDL measurement (mass/volume)2020-06-23 06:10:00* Test Item Value Reference Range Interpretation Comments HDL Cholesterol (test code = 2085-9) 45 40-60 [facility] plasma total cholesterol/cholesterol in HDL mass fsmzq7277-98-68 06:10:00* Test Item Value Reference Range Interpretation Comments Cholesterol/HDL Ratio (test code = 9830-1) 3.0 3.9-4.7 [facility] plasma thyrotropin measurement by detection limit <= 0.005 miu/l (units/volume)2020-06-23 06:10:00* Test Item Value Reference Range Interpretation Comments Thyroid Stimulating Hormone (TSH) (test code = 41662-0) 0.274 0.350-4.940 [facility] HospitalFluoroscopic procedure less than one hour phrsjink0910-33-65 01:35:00* Test Item Value Reference Range Interpretation Comments Coronavirus (PCR) (test code = Coronavirus (PCR)) NOT DETECTED NOTD ETECTED [employer] SARS-CoV-2 assay is a nucleic amplification test intended for the qualitative detection of RNA from SARS-CoV-2 from nasopharyngeal (SPECIAL [employer]) specimens . It is used under Emergency Use Authorization (EUA) by FDA.A positive result is indicative of the presence of SARS-CoV-2 RNA. Clinical correlation with patient history and other diagnostic information is necessary to determine patient infe ction status.A negative (Not Detected) result does not preclude SARS-CoV-2 infec tion. Clinical Correlation with patient history and other diagnostic information should be used in patient management decisions.Invalid: Unable to generate a va lid result on this specimen. Please submit a new specimen for reprat testing oc clinically indicated.Tesing performed by:[facility] [id number] [place] [address] [id number], Santos Davies MD, PhD [facility]CT [facility]/PELVIS [id number] 23:42:00 [place] [address] Patient Name: ABBI SAVAGE MR #: [id number] : 1940 Age/Sex: 79/M Req #: [id number] Adm Physician: Ordered by: ILENE KILLIAN rt #: [id number] Location: ER Room/Be d: Procedure: [id number] CT/CT ABDOMEN/P LAVONNE W Exam Date: 06/22/20 Exam Time: 2315 REPORT STATUS: Signed EXAM: CT Abdomen a nd Pelvis WITH contrast INDICATION: Abdominal pain. Fever. Kidney stones. COMPARISON: None. TECHNIQUE: Abdomen and pelvis were scanned utilizing a multi detector helical scanner from the lung base to the pubic symphysis after admin istration of IV contrast. Coronal and sagittal reformations were obtained. Rou markos protocol was performed. Scan was performed when during portal venous phas e. IV CONTRAST: 100 cc Isovue-370 ORAL CONTRAST: Water RADIATION DOSE: Total DLP: 340.01 mGy*cm Estimated effective dose: (DLP x 0.015 x size factor) mSv COMPLICATIONS: None FI NDINGS: LINES and TUBES: None. LOWER THORAX: Unremarkable HEPATO BILIARY: No focal hepatic lesions. No biliary ductal dilation. GALLBL ADDER: No radio-opaque stones or sludge. No wall thickening. SPLEEN: No sp lenomegaly. PANCREAS: No focal masses or ductal dilatation. ADRENAL S: No adrenal nodules KIDNEYS/URETERS: There is a 6.5 mm obstructing ca lculus in the proximal right ureter resulting in moderate to severe right hydr oureteronephrosis. In addition, there is a 7 mm calculus in the upper pole of the right kidney on image 18. Punctate calculus in the posterior interpolar re gion of the right kidney on image 21. 2 mm calculus in the posterior lower robbie e of the right kidney on image 32. There is mild right renal edema and perinep hric stranding. There is a 5 mm nonobstructing calculus in the lower pole of the left kidney on image 25. 3 mm nonobstructing calculus in the interpolar region of the left kidney on image 16. Variously-sized low-attenuation lesion s scattered throughout the left kidney consistent with simple cysts, the large st exophytic of the posterolateral interpolar region measuring 5.5 cm in lengt h on sagittal image 95. Mild left caliectasis. GI TRACT: No abnormal dis tention, wall thickening, or evidence of bowel obstruction. There are diverti cula within the colon without evidence of diverticulitis. Appendix is not lizzy mayo identified, however, there is no evidence of appendicitis. PELVIC OR JAZLYN/BLADDER: The prostate is mildly enlarged measuring 5.5 x 4.8 cm in sagitt al and transverse dimensions. LYMPH NODES: No lymphadenopathy. VESSELS : Unremarkable. PERITONEUM / RETROPERITONEUM: No free air or fluid. ROSENDO MONET: There are degenerative changes in the lumbar spine. SOFT TISSUES: Unre markable. IMPRESSION: 1. 6.5 mm obstructing calculus in the proximal right ureter resulting in moderate to severe right hydroureteronephrosis. 2 . Additional bilateral nephrolithiasis. 3. Colonic diverticulosis without di verticulitis. 4. Mildly enlarged prostate. Signed by: Dr. Elizabeth lindquist M.D. on 06/22/2020 11:53 PM Dictated By: CARLOS BAHENA MD, MD Marian ctronically Signed By: CARLOS BAHENA MD, MD on 06/22/202352 Transcribed By: MICHELLE BOWENS on 06/22/202352 COPY TO: ILENE KILLIAN DO Fluoroscopic procedure less than one hour [id number] 21:50:00* Test Item Value Reference Range Interpretation Comments Lactic Acid Level (test code = Lactic Acid Level) 1.2 0.5- 2.0 [facility] creatine kinase measurement (enzymatic activity/volume)2020-06-22 21:50:00* Test Item Value Reference Range Interpretation Comments Creatine Kinase (test code = 2157-6) 693 30-200 [facility] plasma creatine kinase MB measurement (mass/volume)2020-06-22 21:50:00* Test Item Value Reference Range Interpretation Comments Creatine Kinase MB (test code = 91091-4) 0.60 0-5.0 [facility] HospitalTroponin I measurement by highly sensitive enzyme gbpntbtdnhi9797-42-13 21:50:00* Test Item Value Reference Range Interpretation Comments Troponin I (test code = 91022-9) 0.006 0-0.300 [facility] HospitalBlood mzcfdng6686-31-15 21:50:00* Test Item Value Reference Range Interpretation Comments Blood Culture (test code = 73105031) NO GROWTH AFTER 72 HOURS [facility] HospitalBacterial urine fimglce4196-43-48 21:50:00* Test Item Value Reference Range Interpretation Comments Urine Culture (test code = 630-4) STAPHYLOCOCCUS AUREUS-MRSA [facility] HospitalCT CHEST [id number] 10:11:00 [facility] [place] [address] Patient Name: ABBI SAVAGE MR #: [id number] : 1940 Age/Sex: 79/M Req #: [id number] Adm Physician: Ordered by: SAMSON JACK MD Report #: [id number] Location: CT Room/Bed: Procedure: [id number] CT/CT CHEST WO E xam Date: 06/19/20 Exam Time: 0950 REPORT STATUS: Signed EXAM: CT Chest WITHOUT intra venous contrast 06/19/2020 9:50 AM INDICATION: Pulmonary nodule COMPARISON: Chest radiograph 06/09/2020 TECHNIQUE: Chest was scanned utilizing a multidet ronaldo helical scanner from the lung apex through the level of the adrenal glan ds without administration of IV contrast. Coronal and sagittal reformations we re obtained. Routine protocol was performed. IV CONTRAST: None RADIATIO N DOSE: Total DLP: 436 mGy*cm. Dose modulation, iterative reconstruction, and/ or weight based adjustment of the mA/kV was utilized to reduce the radiation d ose to as low as reasonably achievable. COMPLICATIONS: None FINDINGS: LINES/ TUBES: None. LUNGS AND AIRWAYS: The central airways are patent. No focal consolidation or pulmonary edema. Right apical nodular opacity seen o n prior chest radiograph corresponds with a 6 mm calcified granuloma. No addit ional suspicious pulmonary nodules. PLEURA: The pleural spaces are kasey r. HEART AND MEDIASTINUM: The thyroid gland is normal. No mediastinal, hil ar or axillary lymphadenopathy. The heart is normal in size.. There is no p ericardial effusion. Scattered athetotic calcifications of the thoracic aorta and coronary arteries. UPPER ABDOMEN: 7 mm right upper pole renal calculus with moderate right hydronephrosis. Partially visualized 4.3 cm left upper po le exophytic simple renal cyst. 4 mm left upper pole renal calculus. 1cm left hepatic cyst. BONES: No acute osseous injury. No suspicious lytic or blasti c lesions. SOFT TISSUES: Unremarkable. IMPRESSION: Nodular opacity seen on prior chest radiograph corresponds with a 6 mm right apical calcified granuloma. No suspicious pulmonary nodules. 7 mm right upper pole renal ca lculus and moderate right hydronephrosis. 4 mm left upper pole renal calcul us. No left hydronephrosis. Partially visualized left upper pole 4.3 cm exo phytic simple renal cyst. Signed by: Demarcus Rodriguez MD on 06/19/2020 10:18 AM Dictated By: DEMARCUS RODRIGUEZ MD 1018 COPY TO: SERENITY JACK MD ABDOMEN-1VIEW (KUB)2020-06-09 16:34:00 [place] [address] Patient Name: ABBI SAVAGE MR #: [id number] : 1940 Age/Sex: 79/M Req #: [id number] Adm Physician: Ordered by: SASMON JACK MD Report #: [id number] Location: OR Room/Bed: Procedure: [id number] DX/ABDOMEN-1VIEW (KUB) Exam Date: 06/09/20 Exam Time: 1618 REPORT STATUS: Signed Exam: KUB - 2 views Indication: Preoperative Comparison: None Findings: Bilateral renal calculi measure up to 9 mm at the right upper pole, 4 mm at the left upp er pole, and 5 mm at the left lower pole. A 7 mm calcific density overlying th e approximate distribution of the right mid ureter may represent a ureteral ca lculus. Phleboliths in the left pelvis. Nonobstructive bowel gas pattern. No f ree air. No acute osseous injury. Impression: Bilateral renal calculi sonia sure up to 9 mm on the right and 5 mm on the left. 7 mm calcific density in the right lower abdomen may represent a right ureteral calculus. Signed by: Demarcus Rodriguez MD on 06/09/2020 4:36 PM Dictated By: DEMARCUS RODRIGUEZ MD Elect ronically Signed By: DEMARCUS RODRIGUEZ MD on 06/09/201635 Transcribed By: MANSI on 06/09/201635 COPY TO: SAMSON JACK MD CHEST 2 [id number] 16:30:00 [place] [address] Patient Name: ABBI SAVAGE MR #: [id number] : 1940 Age/Sex: 79/M Req #: [id number] Adm Physician: Ordered by: SAMSON JACK MD Report #: [id number] Location: OR Room/Bed: Procedure: [id number] DX/CHEST 2 VIEWS Exam Date: 06/09/20 Exam Time: 1618 REPORT STATUS: Signed EXAMINATION: CHEST 2 VIEW S INDICATION: Pre-operative COMPARISON: None FINDINGS: LINES/TUBES:None LUNGS:The lungs are well-inflated. No focal consolidat ion or pulmonary edema. 5 mm right apical pulmonary nodule PLEURA:No pleu ral effusion or pneumothorax. MEDIASTINUM:The cardiomediastinal silhouette appears normal in size and shape. Atherosclerotic calcifications of the thorac ic aorta. BONES/SOFT TISSUES:No acute osseous injury. ABDOMEN:No free air under the diaphragm. IMPRESSION: No focal pneumonia or pulmonary edema. 5 mm right apical pulmonary nodule. 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 Signed by: Katelyn Rodriguez MD on 06/09/2020 4:33 PM Dictated By: DEMARCUS RODRIGUEZ MD Electronica lly Signed By: DEMARCUS RODRIGUEZ MD on 06/09/20 163 Transcribed By: MANSI on 1632 COPY TO: SAMSON JACK MD
[2020-07-28 17:12] VITALS: BP 129/74
--- NOTE | 2020-07-28 17:18 | Emergency Department Note ---
History of Present Illnes History of Present Illness Chief Complaint: General Medicine Complaints History of Present Illness This is a 79 year old male RIGHT NEPHROSTOMY TUBE CAP CAME OFF, AND NOW ITS LEAKING. PATIENT WALKED IN WITH A BAG WRAPPED AROUND IT . Historian: Patient Arrival Mode: Car Additional Treatment PHOTO MASK PATTERN GENERATOR: NONE Electronic War[employer] Technical Required: No Onset (how long ago): hour(s) Radiation: Reports non-radiation Severity: mild Chronicity: new Context: Denies recent illness Relieving factors: none Exacerbating factors: none Associated symptoms: Reports denies other symptoms Past Medical/Family History Physician Review I have reviewed the patient's past medical and family history. Any updates have been documented here. Past Medical History Recent Fever: No Clinical Suspicion of Infectio: No New/Unexplained Change in Ment: No Past Medical History: Hypertension Other Surgery: LITHOTRIPSY NEPHROSTOMY TUBE 06/22 Social History Smoking Cessation: Never Smoker Counseling Performed: No Alcohol Use: None Any Illegal Drug Use: No TB Exposure/Symptoms: No Physically hurt or threatened: No Family History Family history of heart diseas: No Review of Systems Review of Systems Constitutional: Reports no symptoms EENTM: Reports no symptoms Cardiovascular: Reports no symptoms Respiratory: Reports no symptoms Gastrointestinal: Reports no symptoms Genitourinary: Reports no symptoms Musculoskeletal: Reports no symptoms Integumentary: Reports no symptoms Neurological: Reports no symptoms Psychological: Reports no symptoms Endocrine: Reports no symptoms Hematological/Lymphatic: Reports no symptoms Physical Exam Related Data Allergies: Coded Allergies: No Known Allergies (Unverified , 07/13/20) Triage Vital Signs Vital Signs Date Time Temp Pulse Resp B/P (MAP) Pulse Ox O2 Delivery O2 Flow Rate FiO2 07/28/20 16:19 98.7 100 18 149/64 100 Vital signs reviewed: Yes Physical Exam CONSTITUTIONAL Constitutional: Present well-developed, Present well-nourished HENT HENT: Present normocephalic, Present atraumatic, Present oropharynx clear/moist, Present nose normal HENT L/R: Present left ext ear normal, Present right ext ear normal EYES Eyes: Reports PERRL, Reports conjunctivae normal NECK Neck: Present ROM normal PULMONARY Pulmonary: Present effort normal, Present breath sounds normal CARDIOVASCULAR Cardiovascular: Present regular rhythm, Present heart sounds normal, Present capillary refill normal, Present normal rate GASTROINTESTINAL Abdominal: Present soft, Present nontender, Present bowel sounds normal, Present other (RIGHT NEPHROSTOMY WITH CAP AT END OF BAG LOOSE) GENITOURINARY Genitourinary: Present exam deferred SKIN Skin: Present warm, Present dry MUSCULOSKELETAL Musculoskeletal: Present ROM normal NEUROLOGICAL Neurological: Present alert, Present oriented x 3, Present no gross motor or sensory deficits PSYCHOLOGICAL Psychological: Present mood/affect normal, Present judgement normal Assessment & Plan Medical Decision Making MDM WILL SWITCH TO NEW NEPHROSTOMY BAG Reassessment Reassessment [place] HOME Assessment & Plan Final Impression: (1) Nephrostomy complication Depart Disposition: HOME, SELF-CARE Last Vital Signs Date Time Temp Pulse Resp B/P (MAP) Pulse Ox O2 Delivery O2 Flow Rate FiO2 07/28/20 16:19 98.7 100 18 149/64 100 Home Meds Reported Medications Ramipril (RAMIPRIL) 2.5 Mg Capsule, 1 CAP PO HS 07/13/20 Multivitamin (MULTIVITAMINS) 1 Each Capsule, 1 CAP PO DAILY 06/09/20 Aspirin (ASPIR 81) 81 Mg Tablet.dr, 81 MG PO DAILY 06/09/20 Amlodipine Besylate (AMLODIPINE BESYLATE) 5 Mg Tablet, 5 MG PO DAILY, #30 TAB 06/09/20 VELIA GRAMAJO MD Jul 28, 2020 17:18
== END 2020-07-28 17:52 | disposition home or self-care (01) ==
LOC: ER 16:00
DX: Z43.6 Encounter for attention to other artificial openings of urinary tract (principal); I10 Essential (primary) hypertension
CPT/HCPCS: 99283

== ENCOUNTER → 2020-07-29 | Day surgery (SDC) | payer MEDICARE, OTHER ==
--- NOTE | 2020-07-25 12:51 | Diagnostic Imaging Report ---
EXAM: ABDOMEN-1VIEW (KUB) DATE: 07/25/2020 12:32 PM INDICATION: Preoperative evaluation COMPARISON: CT from 06/22/2020 FINDINGS: Right sided percutaneous nephrostomy catheter and double-J ureteral stent identified in place. 8 mm calcification identified projecting over the superior pole of the right kidney likely representing a renal stone. Additional 7 mm stone identified along the course of the mid right ureter. 5 mm calcification noted projecting over the inferior pole of the left kidney. Suspected phleboliths noted within the left hemipelvis. Bowel gas pattern is nonobstructive. Degenerative changes noted of the thoracolumbar spine. No acute osseous abnormality is identified. IMPRESSION: 8 mm right upper pole renal stone and 7 mm mid right ureteral stone. Right-sided nephrostomy catheter and double-J ureteral stent identified in place. 5 mm left inferior pole renal stone. Signed by: Dr. Martin Bailon MD on 07/25/2020 12:48 PM
[~2020-07-29] MED LIST changes: +FENTANYL CITRATE/PF 100MCG/2 ML INJ ONE; +GENTAMICIN 80MG/NS 100 ML 100 ML IV ONE; +IOPAMIDOL 300MG/ML 50ML INFUS..BTL IV ONE; +LIDOCAINE HCL 2% LOCAL INJ 5 ML SDV VIAL INJ ONE; +ONDANSETRON HCL INJ 2MG/ML 2ML 2 MG/ML VIAL ONE; +PROPOFOL IV EMULSION 10 MG/ML 20 ML VIAL ONE
[2020-07-29 08:35] VITALS: BP 150/75
--- NOTE | 2020-07-29 12:52 | Operative Report ---
DATE OF PROCEDURE: 07/29/2020 SURGEON: Edgar Colmenares MD PREOPERATIVE DIAGNOSIS: Right ureteral calculus. POSTOPERATIVE DIAGNOSIS: Right ureteral calculus. PROCEDURE: Staged right-sided shock wave lithotripsy. ANESTHESIA: General. ESTIMATED BLOOD LOSS: Minimal. COMPLICATIONS: None. INDICATIONS: Mr. Jimenez is a very pleasant 79-year-old male with chronically obstructed greater than 1 cm right ureteral calculi and it is actually abutted itself on the ureteral wall. He is presenting for sandwich therapy after laser of the core inability to pull the fragments out of the mucosalized wall, now presents for multiple fragmentation via lithotripsy. He voiced understanding of the options, alternatives, the risks, and benefits and elected to proceed. PROCEDURE IN DETAIL: After informed consent was obtained, the patient was taken to the operative suite, placed supine on the operating table, and underwent general anesthesia by the Anesthesia Service. Stone was localized in the X, Y, and Z planes. Treatment was performed per the lithotripsy techs report. The patient tolerated the procedure well, transferred to recovery room in excellent condition. No untoward effects noted. Supervision of fluoroscopy: I was present for the entire procedure and supervised the use of fluoroscopy. There was no radiologist present. Edgar Colmenares MD ES/MODL /[id number]
== END | disposition home or self-care (01) ==
LOC: OR 05:32
PROVIDERS: ATTEND Urology
DX: N20.1 Calculus of ureter (principal); N20.0 Calculus of kidney; N28.1 Cyst of kidney, acquired; N13.30 Unspecified hydronephrosis; N40.1 Benign prostatic hyperplasia with lower urinary tract symptoms; R35.1 Nocturia; I12.9 Hypertensive chronic kidney disease with stage 1 through stage 4 chronic kidney disease, or unspecified chronic kidney disease; N18.3 Chronic kidney disease, stage 3 (moderate); N52.9 Male erectile dysfunction, unspecified; Z01.812 Encounter for preprocedural laboratory examination; Z01.818 Encounter for other preprocedural examination; Z11.59 Encounter for screening for other viral diseases; Z79.82 Long term (current) use of aspirin
CPT/HCPCS: 50590; 74018; J1580; J2001; J2405; J2704; J3010; U0002

== ENCOUNTER → 2020-08-13 | Day surgery (SDC) | payer MEDICARE, OTHER ==
[2020-08-08 11:53] LABS: BASOPHILS % 0.2 % (0.0-1.0); EOSINOPHILS # (AUTO) 0.1 (0.0-0.4); EOSINOPHILS % 1.8 % (0.0-6.0); HEMATOCRIT 36.7 % (38.2-49.6); HEMOGLOBIN 11.6 g/dL (14.0-18.0); LYMPHOCYTES # (AUTO) 1.6 (1.0-3.2); MEAN CORPUSCULAR HEMOGLOBIN 30.4 pg (28-32); MEAN CORPUSCULAR HGB CONC 31.6 g/dL (31-35); MEAN CORPUSCULAR VOLUME 96.3 fL (81-99); MONOCYTES # (AUTO) 0.5 (0.2-0.8); MONOCYTES % 8.6 % (4.4-11.3); NEUTROPHILS # (AUTO) 3.4 (2.1-6.9); NEUTROPHILS % 61.2 % (38.7-80.0); PLATELET COUNT 197 x10e3/uL (140-360); RED BLOOD COUNT 3.81 x10e6/uL (4.3-5.7); RED CELL DISTRIBUTION WIDTH 13.2 % (11.7-14.4)
[~2020-08-13] MED LIST changes: +CEFTRIAXONE SOD 1 GM VIAL ONE; +DEXAMETHASONE SOD PHOS INJ 4 MG/ML VIAL ONE; +FLUCONAZOLE100 MG PO; -GENTAMICIN 80MG/NS 100 ML 100 ML IV ONE; +LEVAQUIN500 MG PO; +NALOXONE HCL INJ 0.4 MG/ML AMP ONE; +SEVOFLURANE INHAL SOLN 250 ML PEN BTL ONE
[2020-08-13 08:15] VITALS: BP 135/74
== END | disposition home or self-care (01) ==
LOC: OR 05:37
PROVIDERS: ATTEND Urology
DX: N20.1 Calculus of ureter (principal); N13.30 Unspecified hydronephrosis; Z46.6 Encounter for fitting and adjustment of urinary device; Z43.6 Encounter for attention to other artificial openings of urinary tract; I12.9 Hypertensive chronic kidney disease with stage 1 through stage 4 chronic kidney disease, or unspecified chronic kidney disease; N18.3 Chronic kidney disease, stage 3 (moderate); N28.89 Other specified disorders of kidney and ureter; N28.1 Cyst of kidney, acquired; N40.1 Benign prostatic hyperplasia with lower urinary tract symptoms; R35.1 Nocturia; N52.9 Male erectile dysfunction, unspecified; Z01.812 Encounter for preprocedural laboratory examination; Z11.59 Encounter for screening for other viral diseases
CPT/HCPCS: 36415; 50389; 52356; 85025; C1758; C1769; C2617; J0696; J1100; J2001; J2310; J2405; J2704; J3010; Q9967; U0002; 76000

== ENCOUNTER 2020-08-14 09:37 | Inpatient (IN) | payer MEDICARE ==
[~2020-08-14] VITALS: Ht 167.6 cm; Wt 69.9 kg
[~2020-08-14 09:37] MED LIST changes: -CEFTRIAXONE SOD 1 GM VIAL ONE; -DEXAMETHASONE SOD PHOS INJ 4 MG/ML VIAL ONE; -FENTANYL CITRATE/PF 100MCG/2 ML INJ ONE; -FLUCONAZOLE100 MG PO; -IOPAMIDOL 300MG/ML 50ML INFUS..BTL IV ONE; -LEVAQUIN500 MG PO; -LIDOCAINE HCL 2% LOCAL INJ 5 ML SDV VIAL INJ ONE; -NALOXONE HCL INJ 0.4 MG/ML AMP ONE; -ONDANSETRON HCL INJ 2MG/ML 2ML 2 MG/ML VIAL ONE; -PROPOFOL IV EMULSION 10 MG/ML 20 ML VIAL ONE; -SEVOFLURANE INHAL SOLN 250 ML PEN BTL ONE
[2020-08-14] MEDS ORDERED: PIPER-TAZ 3.375 GM 50 ML IV STA (09:48)
[2020-08-14] MEDS ORDERED: SODIUM CHLORIDE 0.9% 1000ML 1,000 ML IV SCH (10:00)
[2020-08-14] MEDS ORDERED: MORPHINE SULFATE INJ 4 MG/ML INJ 1ML IV PRN (10:00)
[2020-08-14] MEDS ORDERED: ONDANSETRON HCL INJ 2MG/ML 2ML 2 MG/ML VIAL IV PRN (10:00)
[2020-08-14 10:05] LABS: BASOPHILS % 0.2 % (0.0-1.0); EOSINOPHILS % 0.1 % (0.0-6.0); HEMATOCRIT 36.5 % (38.2-49.6); MEAN CORPUSCULAR HEMOGLOBIN 30.6 pg (28-32); MEAN CORPUSCULAR HGB CONC 32.9 g/dL (31-35); MEAN CORPUSCULAR VOLUME 93.1 fL (81-99); MONOCYTES # (AUTO) 1.2 (0.2-0.8); NEUTROPHILS # (AUTO) 12.5 (2.1-6.9); NEUTROPHILS % 83.8 % (38.7-80.0); PLATELET COUNT 226 x10e3/uL (140-360); RED BLOOD COUNT 3.92 x10e6/uL (4.3-5.7); RED CELL DISTRIBUTION WIDTH 13.4 % (11.7-14.4)
[2020-08-14] MEDS ORDERED: ACETAMINOPHEN 325 MG TAB PO ONE (10:15)
[2020-08-14 10:33] LABS: ALBUMIN/GLOBULIN RATIO 1.1 (0.8-2.0); ANION GAP 15.1 mmol/L (8-16); CALCIUM 9.1 mg/dL (8.4-10.2); CREATININE, SERUM 1.47 mg/dL (0.72-1.25); POTASSIUM 4.1 mmol/L (3.5-5.1)
[2020-08-14 10:39] LABS: CREATINE KINASE MB 0.9 ng/mL (0-5.0)
[2020-08-14] MEDS ORDERED: IBUPROFEN 600 MG TAB PO STA (11:11)
[2020-08-14 12:06] LABS: CLARITY,URINE CLEAR (CLEAR); COLOR,URINE YELLOW (YELLOW); LEUKOCYTE ESTERASE ,URINE SMALL (NEGATIVE); NITRITE,URINE NEGATIVE (NEGATIVE); PROTEIN,URINE DIPSTICK 2+ (NEGATIVE)
[2020-08-14 12:07] LABS: BILIRUBIN,URINE NEGATIVE (NEGATIVE); KETONES,URINE NEGATIVE (NEGATIVE); URINE UROBILINOGEN 0.2 mg/dL (0.2 - 1)
[2020-08-14 12:11] LABS: BACTERIA,URINE MODERATE /HPF; EPITHELIAL CELLS,URINE RARE /LPF; MUCUS,URINE FEW (RARE); RBC,URINE >50 /HPF (0-5); WBC,URINE (MAN) 21-50 /HPF (0-5)
[2020-08-14] MEDS: SODIUM CHLORIDE 0.9% 1000ML 1,000 ML IV SCH ×2 (12:45→20:30)
[2020-08-14] MEDS ORDERED: IOPAMIDOL 370 MG/ML 200 ML INFUS..BTL INJ ONE (13:10)
[2020-08-14] MEDS ORDERED: SODIUM CHLORIDE 0.9% 50ML 50 ML ONE (13:10)
[2020-08-14] MEDS: CEFEPIME 1GM/NS 0.9% 50 ML 50 ML IV SCH (13:50)
[2020-08-14] MEDS ORDERED: FLUCONAZOLE100 MG PO (14:24)
[2020-08-14 15:30] VITALS: BP 116/71
[2020-08-14 15:42] VITALS: BP 116/71
[2020-08-14 16:32] LABS: CHOL/HDL RATIO 3.4 (3.9-4.7)
[2020-08-14] MEDS ORDERED: SODIUM CHLORIDE 0.9% 250ML 250 ML ONE (18:07)
[2020-08-14] MEDS: FLUCONAZOLE 100 MG/NS 50 ML 50 ML IV SCH (18:44)
[2020-08-14 20:00] VITALS: BP 101/59
[2020-08-14 20:02] VITALS: BP 101/59
[2020-08-15] VITALS (8 sets, daily range): BP systolic 98–119; BP diastolic 54–82
[2020-08-15] MEDS: SODIUM CHLORIDE 0.9% 1000ML 1,000 ML IV SCH ×3 (04:45→19:06)
[2020-08-15] MEDS ORDERED: DOCUSATE SODIUM 100 MG CAP PO PRN (05:00)
[2020-08-15] MEDS ORDERED: ZOLPIDEM TARTRATE 5 MG TAB PO PRN (05:00)
[2020-08-15 06:05] LABS: BASOPHILS # (AUTO) 0.1 (0.0-0.1); BASOPHILS % 0.4 % (0.0-1.0); HEMATOCRIT 33.9 % (38.2-49.6); HEMOGLOBIN 10.8 g/dL (14.0-18.0); LYMPHOCYTES # (AUTO) 1.6 (1.0-3.2); LYMPHOCYTES % 5.3 % (18.0-39.1); MEAN CORPUSCULAR HEMOGLOBIN 31.2 pg (28-32); MEAN CORPUSCULAR HGB CONC 31.9 g/dL (31-35); MONOCYTES # (AUTO) 1.8 (0.2-0.8); MONOCYTES % 6.1 % (4.4-11.3); NEUTROPHILS # (AUTO) 24.7 (2.1-6.9); NEUTROPHILS % 84.2 % (38.7-80.0); PLATELET COUNT 166 x10e3/uL (140-360); RED BLOOD COUNT 3.46 x10e6/uL (4.3-5.7); RED CELL DISTRIBUTION WIDTH 13.9 % (11.7-14.4)
[2020-08-15 06:21] LABS: ANION GAP 14.4 mmol/L (8-16); CALCIUM 8.4 mg/dL (8.4-10.2); CREATININE, SERUM 2.03 mg/dL (0.72-1.25); POTASSIUM 4.4 mmol/L (3.5-5.1)
[2020-08-15 07:10] LABS: BAND NEUTROPHILS % (MANUAL) 39 %; LYMPHOCYTES % (MANUAL) 8 % (19-48); MONOCYTES % (MANUAL) 7 % (3.4-9.0); NEUTROPHILS % (MANUAL) 46 % (40-74)
[2020-08-15] MEDS: MULTIVITAMINS/MINERALS TAB PO SCH (08:13)
[2020-08-15] MEDS: ACETAMINOPHEN 325 MG TAB PO PRN ×2 (08:43→20:27)
[2020-08-15] MEDS ORDERED: VANCOMYCIN 1GM/NS 250 ML 250 ML IV ONE (10:00)
[2020-08-15] MEDS: CEFEPIME 1GM/NS 0.9% 50 ML 50 ML IV SCH (13:25)
[2020-08-15] MEDS: FLUCONAZOLE 100 MG/NS 50 ML 50 ML IV SCH (17:04)
[2020-08-16] VITALS (10 sets, daily range): BP systolic 96–137; BP diastolic 61–75
[2020-08-16] MEDS: SODIUM CHLORIDE 0.9% 1000ML 1,000 ML IV SCH ×4 (04:53→23:59)
[2020-08-16 07:57] LABS: BASOPHILS # (AUTO) 0.1 (0.0-0.1); BASOPHILS % 0.3 % (0.0-1.0); EOSINOPHILS # (AUTO) 0.1 (0.0-0.4); EOSINOPHILS % 0.4 % (0.0-6.0); HEMATOCRIT 33.3 % (38.2-49.6); HEMOGLOBIN 10.7 g/dL (14.0-18.0); LYMPHOCYTES # (AUTO) 1.3 (1.0-3.2); LYMPHOCYTES % 5.5 % (18.0-39.1); MEAN CORPUSCULAR HEMOGLOBIN 31.1 pg (28-32); MEAN CORPUSCULAR HGB CONC 32.1 g/dL (31-35); MEAN CORPUSCULAR VOLUME 96.8 fL (81-99); MONOCYTES # (AUTO) 1.4 (0.2-0.8); MONOCYTES % 5.9 % (4.4-11.3); NEUTROPHILS % 83.9 % (38.7-80.0); PLATELET COUNT 173 x10e3/uL (140-360); RED BLOOD COUNT 3.44 x10e6/uL (4.3-5.7)
[2020-08-16 08:22] LABS: ANION GAP 12.9 mmol/L (8-16); CALCIUM 8.6 mg/dL (8.4-10.2); CREATININE, SERUM 1.46 mg/dL (0.72-1.25); POTASSIUM 3.9 mmol/L (3.5-5.1)
[2020-08-16] MEDS: ALPRAZOLAM 0.25 MG TAB PO PRN ×2 (08:53→21:22)
[2020-08-16] MEDS: MULTIVITAMINS/MINERALS TAB PO SCH (08:53)
[2020-08-16] MEDS: AMLODIPINE BESYLATE 5 MG TAB PO SCH (10:03)
[2020-08-16] MEDS: CEFEPIME 1GM/NS 0.9% 50 ML 50 ML IV SCH (14:10)
[2020-08-16] MEDS: FLUCONAZOLE 100 MG/NS 50 ML 50 ML IV SCH (17:25)
[2020-08-16] MEDS: ACETAMINOPHEN 325 MG TAB PO PRN (18:26)
[2020-08-16] MEDS ORDERED: RAMIPRIL 2.5 MG CAP PO SCH (21:00)
[2020-08-17] VITALS (9 sets, daily range): BP systolic 109–139; BP diastolic 61–84
[2020-08-17 08:29] LABS: BASOPHILS % 0.2 % (0.0-1.0); EOSINOPHILS # (AUTO) 0.1 (0.0-0.4); EOSINOPHILS % 0.9 % (0.0-6.0); HEMATOCRIT 30.8 % (38.2-49.6); HEMOGLOBIN 9.8 g/dL (14.0-18.0); LYMPHOCYTES % 7.1 % (18.0-39.1); MEAN CORPUSCULAR HGB CONC 31.8 g/dL (31-35); MEAN CORPUSCULAR VOLUME 94.2 fL (81-99); MONOCYTES # (AUTO) 1.1 (0.2-0.8); MONOCYTES % 7.8 % (4.4-11.3); NEUTROPHILS # (AUTO) 11.3 (2.1-6.9); NEUTROPHILS % 82.9 % (38.7-80.0); PLATELET COUNT 175 x10e3/uL (140-360); RED BLOOD COUNT 3.27 x10e6/uL (4.3-5.7); RED CELL DISTRIBUTION WIDTH 14.2 % (11.7-14.4)
[2020-08-17 08:48] LABS: ANION GAP 11.8 mmol/L (8-16); CALCIUM 8.3 mg/dL (8.4-10.2); CREATININE, SERUM 1.26 mg/dL (0.72-1.25); POTASSIUM 3.8 mmol/L (3.5-5.1)
[2020-08-17] MEDS: MULTIVITAMINS/MINERALS TAB PO SCH (09:04)
[2020-08-17] MEDS: AMLODIPINE BESYLATE 5 MG TAB PO SCH (09:04)
[2020-08-17] MEDS: CEFEPIME 1GM/NS 0.9% 50 ML 50 ML IV SCH (13:40)
[2020-08-17] MEDS ORDERED: LEVAQUIN500 MG PO (16:56)
== END 2020-08-17 17:50 | disposition home or self-care (01) | DRG 659 ==
LOC: ER 10:13 → ERHOLD 12:44 → MED/SURG3 15:00
PROVIDERS: ADMIT Internal Medicine; ATTEND Internal Medicine
PROC: 0TC68ZZ Extirpation of Matter from Right Ureter, Via Natural or Artificial Opening Endoscopic (ICD-10-PCS; principal; 2020-08-13)
PROC: 0T768DZ Dilation of Right Ureter with Intraluminal Device, Via Natural or Artificial Opening Endoscopic (ICD-10-PCS; 2020-08-13)
PROC: 0TP5X0Z Removal of Drainage Device from Kidney, External Approach (ICD-10-PCS; 2020-08-13)
PROC: 0TP98DZ Removal of Intraluminal Device from Ureter, Via Natural or Artificial Opening Endoscopic (ICD-10-PCS; 2020-08-13)
PROC: BT1D1ZZ Fluoroscopy of Right Kidney, Ureter and Bladder using Low Osmolar Contrast (ICD-10-PCS; 2020-08-13)
DX: T83.593A Infection and inflammatory reaction due to other urinary stents, initial encounter (principal); A41.9 Sepsis, unspecified organism; R65.20 Severe sepsis without septic shock; N17.9 Acute kidney failure, unspecified; N10 Acute pyelonephritis; I12.9 Hypertensive chronic kidney disease with stage 1 through stage 4 chronic kidney disease, or unspecified chronic kidney disease; N18.3 Chronic kidney disease, stage 3 (moderate); N40.0 Benign prostatic hyperplasia without lower urinary tract symptoms; E66.3 Overweight; Z87.442 Personal history of urinary calculi; Z93.6 Other artificial openings of urinary tract status; Z11.59 Encounter for screening for other viral diseases; Z80.42 Family history of malignant neoplasm of prostate; Z80.9 Family history of malignant neoplasm, unspecified; Z68.24 Body mass index [BMI] 24.0-24.9, adult; Z74.09 Other reduced mobility
CPT/HCPCS: 36415; 74177; 76000; 80048; 80053; 80061; 81001; 82550; 82553; 83036; 83605; 84484; 85025; 87040; 87086; 99284; C1758; C1769; C2617; J0692; J0696; J1100; J1450; J2001; J2270; J2310; J2405; J2543; J3010; J3370; J7030; J7050; Q9967; U0002